=== PATIENT | male | born 1995 | race Caucasian/White ===

== ENCOUNTER 2017-03-14 06:20 | Emergency (ER) | payer BC ==
--- NOTE | 2017-03-14 07:33 | ERPHSYRPT ---
- History of Present Illness Time Seen by Provider: 03/14/17 07:28 Historian: patient, family Exam Limitations: no limitations Patient Subjective Stated Complaint: Pt sts abd pain diffuse but worst RUQ x 3 weeks. Sts intermittent vomiting. Pt sts vomiting x 2 this morning. Denies diarrhea. Denies fevers at home. Pt described as pressure. Rates pain 2/10 at present, can go up to 10/10 at times. Sts thinks he has seen blood in his spit suring/after vomiting. Denies any aggravating factors. Denies alleviating factors at home. Has not taken any OTC medications for this. Triage Nursing Assessment: Pt alert, oriented, answers all questions appropriately. Pt ambulatory to tx room, steady gait noted. Resps non-labored. ABD SNT x 4 quadrants. Physician History: The patient is a 21-year-old male with his significant other complaining of intermittent abdominal pain for 2-3 weeks. He also complains of intermittent vomiting during this time. He doesn't vomit every day. He says he has abdominal pain comes on after vomiting. Currently he has no abdominal pain. He has vomited twice since midnight. He says he will begin coughing which leads to vomiting. The last 2 times he has noticed flecks of blood in the vomit. The flecks of blood has him worried. He also complains that he has not having regular bowel movements as he used to have before 2-3 weeks ago. His normal bowel habits were to have a bowel movement a few minutes after each meal. He would have a bowel movement 3-5 times a day. For the last 2-3 weeks he does not have a bowel movement daily. Now he must strain significantly to have a bowel movement and the bowel movement consists of small hard pellets. He feels obstipated all the time. His past medical history is unremarkable. He has had no surgeries. He takes no medicines. He does not smoke or drink. Timing/Duration: week(s) (3) Activities at Onset: none Quality: pressure, sharpness Abdominal Pain Onset Location: epigastric Pain Radiation: no radiation Severity of Pain-Max: severe Severity of Pain-Current: none Modifying Factors: Improves With: eating, vomiting Associated Symptoms: nausea Previous symptoms: no prior history Allergies/Adverse Reactions: No Known Drug Allergies Allergy (Verified 08/23/16 21:40) Hx Tetanus, Diphtheria Vaccination/Date Given: Yes Hx Influenza Vaccination/Date Given: No Hx Pneumococcal Vaccination/Date Given: No - Review of Systems Constitutional: No Fever, No Chills Eyes: No Symptoms Ears, Nose, & Throat: No Symptoms Respiratory: No Cough, No Dyspnea Cardiac: No Chest Pain, No Edema, No Syncope Abdominal/Gastrointestinal: Abdominal Pain, Nausea, Vomiting, Constipation Genitourinary Symptoms: No Dysuria Musculoskeletal: No Back Pain, No Neck Pain Skin: No Rash Neurological: No Dizziness, No Focal Weakness, No Sensory Changes Psychological: No Symptoms Endocrine: No Symptoms Hematologic/Lymphatic: No Symptoms Immunological/Allergic: No Symptoms All Other Systems: Reviewed and Negative - Past Medical History Pertinent Past Medical History: No - Past Surgical History Past Surgical History: No - Social History Smoking Status: Never smoker Exposure to second hand smoke: No Alcohol Use: occasional alcohol use Drug Use: none Patient Lives Alone: No - Nursing Vital Signs Nursing Vital Signs: Initial Vital Signs Temperature 97.3 F Temperature Source Oral Pulse Rate 62 Respiratory Rate 18 Blood Pressure [Right Arm] 121/67 Pain Intensity 2 - Physical Exam General Appearance: no apparent distress, alert Eye Exam: PERRL/EOMI, eyes nml inspection Ears, Nose, Throat Exam: normal ENT inspection, pharynx normal, moist mucous membranes Neck Exam: normal inspection, non-tender, supple, full range of motion Respiratory Exam: normal breath sounds, lungs clear, No respiratory distress Cardiovascular Exam: regular rate/rhythm, normal heart sounds Gastrointestinal/Abdomen Exam: soft, normal bowel sounds (Hyperactive), tenderness (LLQ) Rectal Exam: not done Back Exam: normal inspection, normal range of motion, No CVA tenderness, No vertebral tenderness Extremity Exam: normal inspection, normal range of motion, pelvis stable Neurologic Exam: alert, oriented x 3, cooperative, normal mood/affect, nml cerebellar function, sensation nml, No motor deficits Skin Exam: normal color, warm, dry SpO2 Interpretation: normal SpO2: 97 Oxygen Delivery: Room Air - Radiology Exams Abdomen X-ray Interpretation: Teleradiologist Report, Negative (per Dr Schmidt) Ordered Tests: Active Orders 24 hr Category Date Time Status IV Insertion STAT Care 03/14/17 07:34 Active OBSTR/ACUTE ABDOMEN SERIES Stat Exams 03/14/17 07:35 Completed CBC W DIFF Stat Lab 03/14/17 06:53 Completed CMP Stat Lab 03/14/17 06:53 Completed LIPASE Stat Lab 03/14/17 06:53 Completed UA Stat Lab 03/14/17 08:20 Completed Medication Summary Discontinued Medications Generic Name Dose Route Start Last Admin Trade Name Harjinder PRN Reason Stop Dose Admin Sodium Chloride 1,000 mls @ 999 mls/hr 03/14/17 07:34 03/14/17 07:50 Sodium Chloride 0.9% 1000 Ml IV 03/14/17 08:34 999 mls/hr .Q1H1M STA Administration Sodium Chloride Confirm 03/14/17 07:46 Sodium Chloride 0.9% 1000 Ml Administered 03/14/17 07:47 Dose 1,000 mls @ ud .ROUTE .STK-MED ONE Ondansetron HCl 4 mg 03/14/17 07:34 03/14/17 07:50 Zofran 4 Mg/2 Ml Vial IV 03/14/17 07:35 4 mg STAT ONE Administration Ondansetron HCl Confirm 03/14/17 07:46 Zofran 4 Mg/2 Ml Vial Administered 03/14/17 07:47 Dose 4 mg .ROUTE .STK-MED ONE Lab/Rad Data: Laboratory Result Diagrams 03/14/17 06:53 03/14/17 06:53 Laboratory Results 03/14/17 03/14/17 03/14/17 Range/Units 08:20 06:53 06:53 WBC 5.7 (4.0-10.5) K/mm3 RBC 5.05 (4.1-5.6) M/mm3 Hgb 15.2 (12.5-18.0) gm/dl Hct 45.0 (42-50) % MCV 89.1 (78-100) fl MCH 30.1 (26-32) pg MCHC 33.8 (32-36) g/dl RDW 13.0 (11.5-14.0) % Plt Count 231 (150-450) K/mm3 MPV 9.8 H (6-9.5) fl Gran % 49.9 (36.0-66.0) % Lymphocytes % 35.1 (24.0-44.0) % Monocytes % 13.1 H (0.0-12.0) % Eosinophils % 1.6 (0.00-5.0) % Basophils % 0.3 (0.0-0.4) % Basophils # 0.02 (0-0.4) Sodium 144 (136-145) mEq/L Potassium 3.6 (3.5-5.1) mEq/L Chloride 108 H (98-107) mEq/L Carbon Dioxide 28.2 (21-32) mEq/L Anion Gap 11.4 (5-15) MEQ/L BUN 14 (9-20) mg/dL Creatinine 1.03 (0.55-1.30) mg/dl Estimated GFR > 60 ML/MIN Glucose 97 (70-110) MG/DL Calcium 9.4 (8.5-10.1) mg/dL Total Bilirubin 0.9 (0.2-1.0) mg/dL AST 19 (15-37) U/L ALT 18 (12-78) U/L Alkaline Phosphatase 56 (46-116) U/L Serum Total Protein 7.0 (6.4-8.2) gm/dL Albumin 3.7 (3.4-5.0) g/dL Lipase 105 (73-393) U/L Ur Collection Type VOID Urine Color YELLOW (YELLOW) Urine Appearance CLEAR (CLEAR) Urine pH 6.0 (5-6) Ur Specific [place] 1.020 (1.005-1.025) Urine Protein NEGATIVE (Negative) Urine Glucose (UA) NEGATIVE (NEGATIVE) mg/dL Urine Ketones NEGATIVE (NEGATIVE) Urine Nitrite NEGATIVE (NEGATIVE) Urine Bilirubin NEGATIVE (NEGATIVE) Urine Urobilinogen 0.2 (0-1) mg/dL Urine WBC (Auto) NEGATIVE (NEGATIVE) Urine RBC (Auto) NEGATIVE (0-5) Vasu/ul Specimen Received 03-14-17 0820 - Progress Progress: improved Progress Note: 03/14/17 09:18 After receiving Zofran 4 mg and normal saline 1000 mL by IV, patient is feeling better and wishes to go home. Counseled pt/family regarding: lab results, diagnosis, rad results - Departure Time of Disposition: 09:19 Departure Disposition: Home Clinical Impression: Abdominal pain, Constipation Condition: Stable Critical Care Time: No Additional Instructions: You have abdominal pain and constipation. You were treated with Zofran and IV fluids in the ER. He was given a prescription for Zofran 4 mg every 6 hours as needed for nausea. For constipation by a bottle of magnesium citrate over-the- counter and take all at once. Follow-up as needed. Prescriptions: Ondansetron [Zofran Odt] 4 mg PO Q6HPRN PRN #10 tab.rapdis PRN Reason: Nausea/Vomiting
[2017-03-14] MEDS ORDERED: Zofran 4 MG/2 ML VIAL IV ONE (07:34)
[2017-03-14] MEDS ORDERED: Sodium Chloride 0.9% 1000 ML 1,000 ML IV STA (07:34)
[2017-03-14 07:41] LABS: BASOPHIL % 0.3 % (0.0-0.4); Eosinophil % 1.6 % (0.00-5.0); Granulocytes % 49.9 % (36.0-66.0); Lymphocytes % 35.1 % (24.0-44.0); Mean Cell Volume 89.1 fl (78-100); Mean Corpuscular Hemoglobin 30.1 pg (26-32); Mean Platelet Volume 9.8 fl (6-9.5); Monocytes % 13.1 % (0.0-12.0); Platelet Count 231 K/mm3 (150-450); Red Blood Count 5.05 M/mm3 (4.1-5.6); White Blood Count 5.7 K/mm3 (4.0-10.5)
[2017-03-14] MEDS ORDERED: Sodium Chloride 0.9% 1000 ML 1,000 ML ONE (07:46)
[2017-03-14] MEDS ORDERED: Zofran 4 MG/2 ML VIAL ONE (07:46)
[2017-03-14 07:50] LABS: ALBUMIN 3.7 g/dL (3.4-5.0); ALKALINE PHOSPHATASE 56 U/L (46-116); ANION GAP 11.4 MEQ/L (5-15); BILIRUBIN,TOTAL 0.9 mg/dL (0.2-1.0); BLOOD UREA NITROGEN 14 mg/dL (9-20); CHLORIDE 108 mEq/L (98-107); Carbon Dioxide 28.2 mEq/L (21-32); Glucose 97 MG/DL (70-110); LIPASE 105 U/L (73-393); Potassium 3.6 mEq/L (3.5-5.1); SGOT/AST 19 U/L (15-37); SGPT/ALT 18 U/L (12-78); SODIUM 144 mEq/L (136-145)
[2017-03-14 08:27] LABS: Collection Type VOID
[2017-03-14 08:28] LABS: COMPLETE URINE MICROSCOPIC? NO
--- NOTE | 2017-03-14 09:01 | XRAY ---
Indication: Epigastric abdominal pain. Nausea and vomiting. Comparison: Chest exam July 13, 2016. 2 views of the abdomen demonstrates nonspecific nonobstructed bowel gas pattern. No free air. Small metallic BB projects over the lower lumbar spine. Remaining solid organs and osseous structures are unremarkable. Single PA chest demonstrates normal heart, lungs, and bony thorax. Impression: 1. Nonacute nonobstructed abdomen with small metallic BB. 2. Normal 1 view chest.
[2017-03-14 09:13] VITALS: BP 121/67; PULSE 62
[2017-03-14 09:23] VITALS: O2SAT 97
== END 2017-03-14 09:30 | disposition home or self-care (01) ==
LOC: ED 06:20
DX: R10.9 Unspecified abdominal pain (principal); K59.00 Constipation, unspecified; R10.11 Right upper quadrant pain; R10.13 Epigastric pain; R11.2 Nausea with vomiting, unspecified
CPT/HCPCS: 36415; 74022; 80053; 81002; 83690; 85025; 96360; 96374; 99284; J2405

== ENCOUNTER 2017-08-06 11:31 | Emergency (ER) | payer BC, OTHER ==
[2017-08-06] MEDS ORDERED: TORAdol 30 mg Injection IM ONE (11:41)
[2017-08-06 11:43] VITALS: PULSE 60; O2SAT 98
[2017-08-06] MEDS ORDERED: TORAdol 30 mg Injection ONE (11:45)
--- NOTE | 2017-08-06 11:51 | ERPHSYRPT ---
- History of Present Illness Time Seen by Provider: 08/06/17 11:33 Source: patient Patient Subjective Stated Complaint: Pt states "I have a workmans comp injury and I hurt my rt shoulder about a month ago and this morning I cannot lift my arm it hurts allot worse than before." Triage Nursing Assessment: Pt alert and oriented X 3, skin pwd pt ambulates without difficulty, able to speak in full sentences, pt holding his right arm, wincing in pain when it moves. 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 He had remote shoulder injury with subscapularis tendinosis with partial thickness tear on MRI 01-25-17. He had a work related right shoulder injury about 3 weeks ago. Had appointment in [place] at his worker's [facility]. They gave motrin 800mg. Had xray. Has appt for follow up Sun. He has been on partial work restriction. He awoke this AM and Sunday AM with sharp pain in the shoulder. No new discreet injury. No N/T/W. No chest or abd pain. No other complaints. Out of the motrin. Was not sure what to do so came to ER. Extremities Pain Location: shoulder: right Allergies/Adverse Reactions: No Known Drug Allergies Allergy (Verified 08/23/16 21:40) Hx Tetanus, Diphtheria Vaccination/Date Given: Yes Hx Influenza Vaccination/Date Given: No Hx Pneumococcal Vaccination/Date Given: No Immunizations Up to Date: Yes - Review of Systems Constitutional: No Fever, No Chills Respiratory: No Dyspnea Cardiac: No Chest Pain Abdominal/Gastrointestinal: No Abdominal Pain Musculoskeletal: Joint Pain (right shoulder), No Back Pain, No Neck Pain Neurological: No Focal Weakness, No Headache, No Parasthesia All Other Systems: Reviewed and Negative - Past Medical History Pertinent Past Medical History: No - Past Surgical History Past Surgical History: No - Social History Smoking Status: Never smoker Exposure to second hand smoke: Yes Alcohol Use: occasional alcohol use Drug Use: none Patient Lives 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: No ([employer] 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) - Nursing Vital Signs Nursing Vital Signs: Initial Vital Signs Temperature 98.1 F 08/06/17 11:36 Pulse Rate 60 08/06/17 11:36 Respiratory Rate 18 08/06/17 11:36 Blood Pressure 152/64 08/06/17 11:36 O2 Sat by Pulse Oximetry 98 10/02/17 11:36 Pain Scale Pain Intensity 8 - Physical Exam General Appearance: alert Eyes, Ears, Nose, Throat Exam: normal ENT inspection, moist mucous membranes Neck Exam: normal inspection, non-tender, supple, No tenderness midline Cardiovascular/Respiratory Exam: normal breath sounds, regular rate/rhythm, No chest non-tender Shoulder Exam: normal inspection, limited ROM (pain with lateral motion and abduction. Good pulse and skin color. No redness. No swelling. No ecchymosis. Tender upper and posterior shoulder.) Elbow/Forearm Exam: normal inspection, non-tender, no evidence of injury Wrist Exam: normal inspection, non-tender, no evidence of injury Hand Exam: normal inspection, non-tender, no evidence of injury Neuro/Tendon Exam: normal sensation, normal motor functions Mental Status Exam: alert, oriented x 3, cooperative Skin Exam: warm, dry SpO2 Interpretation: normal SpO2: 98 Oxygen Delivery: Room Air - Course Nursing assessment & vital signs reviewed: Yes Ordered Tests: Medication Summary Discontinued Medications Generic Name Dose Route Start Last Admin Trade Name Harjinder PRN Reason Stop Dose Admin Ketorolac Tromethamine 60 mg 08/06/17 11:41 Toradol 30 Mg Injection IM 08/06/17 11:42 STAT ONE - Progress Progress Note: 08/06/17 11:50 He has no new injury. Needs to follow up with occ health and may need repeat MRI or physical therapy. Rx motrin. Toradol given here. Xray and sling not indicated at present. Counseled pt/family regarding: diagnosis, need for follow-up - Departure Time of Disposition: 11:51 Departure Disposition: Home Clinical Impression: Right shoulder strain Qualifiers: Encounter type: initial encounter Qualified Code(s): S46.911A - Strain of unspecified muscle, fascia and tendon at shoulder and upper arm level, right arm , initial encounter Condition: Stable Critical Care Time: No Referrals: DOCTOR,NO FAMILY [Primary Care Provider] - Instructions: Shoulder Sprain Additional Instructions: Rx motrin. You need to follow up with your occupational health this week to consider further testing or treatment for this shoulder injury. Ice packs off and on. Prescriptions: Ibuprofen 800 mg PO TID #20 tablet
[2017-08-06 11:59] VITALS: BP 152/60
== END 2017-08-06 12:04 | disposition home or self-care (01) ==
LOC: ED 11:31
DX: S46.911A Strain of unspecified muscle, fascia and tendon at shoulder and upper arm level, right arm, initial encounter (principal)
CPT/HCPCS: 96372; 99284; J1885

== ENCOUNTER 2017-08-23 13:53 | Emergency (ER) | payer BC, OTHER ==
[2017-08-23] MEDS ORDERED: Transderm Scop 1.5MG Patch TOP ONE (14:11)
[2017-08-23] MEDS ORDERED: Zofran 4 MG/2 ML VIAL IV ONE (14:11)
[2017-08-23] MEDS ORDERED: ANTIVERT 25 MG PO ONE (14:11)
[2017-08-23] MEDS ORDERED: Sodium Chloride 0.9% 1000 ML 1,000 ML IV SCH (14:15)
[2017-08-23] MEDS ORDERED: ANTIVERT 25 MG ONE (14:18)
[2017-08-23] MEDS ORDERED: Sodium Chloride 0.9% 1000 ML 1,000 ML ONE ×2 (14:18→22:44)
[2017-08-23] MEDS ORDERED: Zofran 4 MG/2 ML VIAL ONE (14:19)
--- NOTE | 2017-08-23 14:19 | ERPHSYRPT ---
- History of Present Illness Time Seen by Provider: 08/23/17 13:57 Source: patient Exam Limitations: no limitations Patient Subjective Stated Complaint: pt here for dizziness today, states last couple weeks as been having headaches and states sleeping more, denies stress, vomited x1 Triage Nursing Assessment: pt alert, walked in, resp easy, skin w/d. no edema noted Physician History: patient presents with dizziness consistent of being lightheaded and some vertigo ; some nausea but no vomiting; recent headaches generalized and nonspecific; worst was 6/10; no trauma; no photophobia; not positional; no scintillating scotoma; no travel or exposures; no recent flying or diving; no recent colds; no tinnitus; no prior history; no visual disturbance Timing/Duration: week(s) (onset and duration 1-2), constant (But resolved yesterday), gradual onset, other (now lightheaded and dizzy) Quality: aching Head Pain Location: global Severity of Pain-Max: moderate Severity of Pain-Current: none Modifying Factors: Improves With: other (nothing) Associated Symptoms: dizziness, fatigue, light-headedness, nausea/vomiting ( nausea but only one episode of emesis) Previous symptoms: no prior history Allergies/Adverse Reactions: No Known Drug Allergies Allergy (Verified 08/23/17 14:09) Home Medications: No Reportable Medications [No Reported Medications] 08/23/17 [History] Hx Tetanus, Diphtheria Vaccination/Date Given: Yes Hx Influenza Vaccination/Date Given: No Hx Pneumococcal Vaccination/Date Given: No Immunizations Up to Date: Yes - Review of Systems Constitutional: Malaise, No Fever, No Night Sweats, No Weight Loss Eyes: No Eye Pain, No Eye Redness, No Photophobia, No Vision Changes, No Double Vision Ears, Nose, & Throat: No Ear Pain, No Ear Discharge, No Hearing Changes, No Tinnitus, No Nose Congestion, No Sinus Drainage Respiratory: No Cough, No Dyspnea, No Wheezing Cardiac: No Chest Pain, No Palpitations, No Syncope Abdominal/Gastrointestinal: Nausea, Vomiting (times one only), No Abdominal Pain , No Diarrhea, No Constipation Genitourinary Symptoms: No Symptoms Musculoskeletal: Arthralgias, Back Pain (chronic), No Neck Pain, No Fall, No Injury Skin: No Symptoms Neurological: Dizziness, Headache, Vertigo (mild intermittent), No Focal Weakness, No Paralysis, No Seizure Psychological: Anxiety, No Alcohol Abuse, No Drug Abuse, No Suicidal Ideations Endocrine: No Symptoms Hematologic/Lymphatic: No Symptoms Immunological/Allergic: No Symptoms - Past Medical History Pertinent Past Medical History: No - Past Surgical History Past Surgical History: No - Social History Smoking Status: Never smoker Exposure to second hand smoke: No Alcohol Use: Socially Drug Use: none Patient Lives Alone: No Significant Family History: no pertinent family hx - Nursing Vital Signs Nursing Vital Signs: Initial Vital Signs Temperature 97.7 F 08/23/17 13:53 Pulse Rate 68 08/23/17 13:53 Respiratory Rate 18 08/23/17 13:53 Blood Pressure 137/74 08/23/17 13:53 O2 Sat by Pulse Oximetry 97 08/23/17 13:53 Pain Scale Pain Intensity 0 - Physical Exam General Appearance: mild distress, alert, anxiety Eye Exam: PERRL/EOMI, eyes nml inspection, other (fundi benign without papilledema), No photophobia Ears, Nose, Throat Exam: normal ENT inspection, TMs normal, pharynx normal, moist mucous membranes Neck Exam: normal inspection, non-tender, supple, full range of motion, No meningismus, No carotid bruit, No JVD, No thyromegaly Respiratory Exam: normal breath sounds, lungs clear, airway intact, No chest tenderness, No respiratory distress Cardiovascular Exam: regular rate/rhythm, normal heart sounds, normal peripheral pulses, capillary refill <2 sec, No murmur Gastrointestinal/Abdominal Exam: soft, normal bowel sounds, No tenderness, No guarding, No pulsatile mass, No rebound, No organomegaly Extremity Exam: normal inspection, normal range of motion, other (no Homans sign and no edema; no hyperreflexia) Mental Status Exam: alert, oriented x 3, 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 Exam: normal hearing, normal speech, PERRL, tongue midline, No facial asymmetry Coordination/Gait Exam: normal gait, negative Romberg's sign Motor/Sensory Exam: no motor deficit, no sensory deficit, no pronator drift, negative Babinski's sign DTR Exam: knee (R): 4+, knee (L): 4+ Skin Exam: normal color, warm, dry, No rash, No cyanosis SpO2 Interpretation: normal SpO2: 97 Oxygen Delivery: Room Air - Course Nursing assessment & vital signs reviewed: Yes Rhythm Strip: Rate (68), Normal Sinus Rhythm Ordered Tests: Active Orders 24 hr Category Date Time Status Accucheck STAT Care 08/23/17 14:11 Active Calender Worker Helper STAT Care 08/23/17 14:12 Active Orthostatic Vital Signs STAT Care 08/23/17 14:11 Active Re-Check Vital Signs STAT Care 08/23/17 14:12 Active BMP Stat Lab 08/23/17 14:15 Completed CBC W DIFF Stat Lab 08/23/17 14:15 Completed MAGNESIUM Stat Lab 08/23/17 14:15 Completed Medication Summary Generic Name Dose Route Start Last Admin Trade Name Freq PRN Reason Stop Dose Admin Sodium Chloride 1,000 mls @ 100 mls/hr 08/23/17 14:15 08/23/17 14:23 Sodium Chloride 0.9% 1000 Ml IV 09/22/17 14:14 100 mls/hr .Q10H YEFRI Administration Discontinued Medications Generic Name Dose Route Start Last Admin Trade Name Freq PRN Reason Stop Dose Admin Sodium Chloride 250 mls @ 999 mls/hr 08/23/17 14:13 08/23/17 14:23 Sodium Chloride 0.9% 1000 Ml IV 08/23/17 14:28 999 mls/hr .Q16M STA Administration Meclizine HCl 12.5 mg 08/23/17 14:11 08/23/17 14:19 Antivert 25 Mg PO 08/23/17 14:12 12.5 mg STAT ONE Administration Meclizine HCl Confirm 08/23/17 14:18 Antivert 25 Mg Administered 08/23/17 14:19 Dose 25 mg .ROUTE .STK-MED ONE Ondansetron HCl 4 mg 08/23/17 14:11 08/23/17 14:19 Zofran 4 Mg/2 Ml Vial IV 08/23/17 14:12 4 mg STAT ONE Administration Ondansetron HCl Confirm 08/23/17 14:19 Zofran 4 Mg/2 Ml Vial Administered 08/23/17 14:20 Dose 4 mg .ROUTE .STK-MED ONE Scopolamine HBr 1.5 mg 08/23/17 14:11 08/23/17 14:45 Transderm Scop 1.5mg Patch TOP 08/23/17 14:12 1.5 mg STAT ONE Administration Lab/Rad Data: Laboratory Result Diagrams 08/23/17 14:15 08/23/17 14:15 Laboratory Results 08/23/17 08/23/17 Range/Units 14:15 14:15 WBC 5.4 (4.0-10.5) K/mm3 RBC 5.28 (4.1-5.6) M/mm3 Hgb 15.8 (12.5-18.0) gm/dl Hct 46.4 (42-50) % MCV 87.9 (78-100) fl MCH 29.9 (26-32) pg MCHC 34.1 (32-36) g/dl RDW 13.3 (11.5-14.0) % Plt Count 219 (150-450) K/mm3 MPV 9.3 (6-9.5) fl Gran % 45.8 (36.0-66.0) % Lymphocytes % 42.3 (24.0-44.0) % Monocytes % 10.2 (0.0-12.0) % Eosinophils % 1.5 (0.00-5.0) % Basophils % 0.2 (0.0-0.4) % Basophils # 0.01 (0-0.4) Sodium 141 (136-145) mEq/L Potassium 4.0 (3.5-5.1) mEq/L Chloride 106 (98-107) mEq/L Carbon Dioxide 29.1 (21-32) mEq/L Anion Gap 10.0 (5-15) MEQ/L BUN 13 (9-20) mg/dL Creatinine 0.99 (0.55-1.30) mg/dl Estimated GFR > 60 ML/MIN Glucose 88 (70-110) MG/DL Calcium 9.3 (8.5-10.1) mg/dL Magnesium 1.9 (1.8-2.4) mg/dL reviewed - Progress Progress: improved (after meds an div fluids), re-examined Air Movement: good Progress Note: 08/23/17 14:20 iv fluids started; meds given; lab pending; will monitor and recheck; OSVS no change in BP; Pulse jumped 20 / min; no symptoms; will give IV fluid blous and recheck; bs 167 08/23/17 15:05 rechecked and imporved after meds and IV fluids; cbc ok; will continue IV fluids and recheck 08/23/17 15:21 rechecked and symptoms gone; VS good; instructions given Blood Culture(s) Obtained: No Antibiotics given: No Counseled pt/family regarding: lab results, diagnosis, need for follow-up - Departure Time of Disposition: 15:24 Departure Disposition: Home Clinical Impression: Vertigo, clinical dehydration, Headache Condition: Stable Critical Care Time: No Referrals: DOCTOR,NO FAMILY [Primary Care Provider] - Instructions: Vertigo, Headache, Dehydration -- Adult Additional Instructions: rest - good hydration; tylenol ; motrin prn Follow-up with family doctor as directed. Call for appointment. Return if any problems. If you smoke please stop. Call or follow up with your family doctor for assistance if you need it to stop. Please wear your seatbelt when driving. Have a nice day. Thank you for allowing us to participate in your care today. :o) Dr Zia Oshea
[2017-08-23 14:24] LABS: BASOPHIL % 0.2 % (0.0-0.4); Eosinophil % 1.5 % (0.00-5.0); Granulocytes % 45.8 % (36.0-66.0); Lymphocytes % 42.3 % (24.0-44.0); Mean Cell Volume 87.9 fl (78-100); Mean Corpuscular Hemoglobin 29.9 pg (26-32); Mean Platelet Volume 9.3 fl (6-9.5); Monocytes % 10.2 % (0.0-12.0); Platelet Count 219 K/mm3 (150-450); Red Blood Count 5.28 M/mm3 (4.1-5.6); Red Cell Distribution Width 13.3 % (11.5-14.0); White Blood Count 5.4 K/mm3 (4.0-10.5)
[2017-08-23 14:56] VITALS: O2SAT 97
[2017-08-23 15:01] LABS: BLOOD UREA NITROGEN 13 mg/dL (9-20); CHLORIDE 106 mEq/L (98-107); Carbon Dioxide 29.1 mEq/L (21-32); Glucose 88 MG/DL (70-110); MAGNESIUM 1.9 mg/dL (1.8-2.4); SODIUM 141 mEq/L (136-145)
[2017-08-23 15:52] VITALS: BP 129/69; PULSE 68
== END 2017-08-23 15:56 | disposition home or self-care (01) ==
LOC: ED 13:53
DX: R42 Dizziness and giddiness (principal); E86.0 Dehydration; R51 Headache; R11.2 Nausea with vomiting, unspecified
CPT/HCPCS: 36415; 80048; 82962; 83735; 85025; 93041; 96360; 99284; J2405; A9270-GY

== ENCOUNTER 2017-11-04 19:14 | Emergency (ER) | payer BC ==
[2017-11-04] MEDS ORDERED: Mucinex 600MG ER Tabs PO STA (19:36)
--- NOTE | 2017-11-04 19:40 | ERPHSYRPT ---
- History of Present Illness Time Seen by Provider: 11/04/17 19:37 Source: patient Physician History: 22-year-old male came to the emergency room with complaining of sore throat and generalized body ache. Patient has been sick for last 1 day. Denies any fever , chills, nausea, vomiting, diarrhea. Patient daughter was sick with viral illness. Timing/Duration: today Associated Symptoms: cough Allergies/Adverse Reactions: No Known Drug Allergies Allergy (Verified 11/04/17 19:27) Hx Tetanus, Diphtheria Vaccination/Date Given: Yes Hx Influenza Vaccination/Date Given: No Hx Pneumococcal Vaccination/Date Given: No - Review of Systems Constitutional: No Fever, No Chills Eyes: No Symptoms Ears, Nose, & Throat: No Symptoms, Throat Pain Respiratory: No Cough, No Dyspnea Cardiac: No Chest Pain, No Edema, No Syncope Abdominal/Gastrointestinal: No Abdominal Pain, No Nausea, No Vomiting, No Diarrhea Genitourinary Symptoms: No Dysuria Musculoskeletal: No Back Pain, No Neck Pain Skin: No Rash Neurological: No Dizziness, No Focal Weakness, No Sensory Changes Psychological: No Symptoms Endocrine: No Symptoms All Other Systems: Reviewed and Negative - Past Medical History Pertinent Past Medical History: No - Past Surgical History Past Surgical History: No - Social History Smoking Status: Never smoker Exposure to second hand smoke: No Alcohol Use: Socially Drug Use: none Patient Lives Alone: No Significant Family History: no pertinent family hx - Nursing Vital Signs Nursing Vital Signs: Initial Vital Signs Temperature 98.4 F 11/04/17 19:35 Pulse Rate 102 H 11/04/17 19:35 Respiratory Rate 16 11/04/17 19:35 Blood Pressure 150/75 11/04/17 19:35 O2 Sat by Pulse Oximetry 96 11/04/17 19:35 Pain Scale Pain Intensity 4 - Physical Exam General Appearance: no apparent distress, alert Eye Exam: PERRL/EOMI, eyes nml inspection Ears, Nose, Throat Exam: normal ENT inspection, TMs normal, moist mucous membranes, pharyngeal erythema Neck Exam: normal inspection, non-tender, supple, full range of motion Respiratory Exam: normal breath sounds, lungs clear, No respiratory distress Cardiovascular Exam: regular rate/rhythm, normal heart sounds, normal peripheral pulses Gastrointestinal/Abdomen Exam: soft, normal bowel sounds, No tenderness, No mass Back Exam: normal inspection, normal range of motion, No CVA tenderness, No vertebral tenderness Extremity Exam: normal inspection, normal range of motion, pelvis stable Neurologic Exam: alert, oriented x 3, cooperative, normal mood/affect, nml cerebellar function, nml station & gait, sensation nml, No motor deficits Skin Exam: normal color, warm, dry, No rash Lymphatic Exam: No adenopathy - Course Nursing assessment & vital signs reviewed: Yes Ordered Tests: Medication Summary Discontinued Medications Generic Name Dose Route Start Last Admin Trade Name Harjinder PRN Reason Stop Dose Admin Guaifenesin 1,200 mg 11/04/17 19:36 Mucinex 600mg Er Tabs PO 11/04/17 19:37 BID STA - Progress Progress: unchanged Counseled pt/family regarding: diagnosis, need for follow-up - Departure Time of Disposition: 19:49 Departure Disposition: Home Clinical Impression: Viral pharyngitis Condition: Stable Critical Care Time: No Referrals: DOCTOR,NO FAMILY [Primary Care Provider] - Instructions: Viral Pharyngitis Additional Instructions: VIRAL ILLNESS 1. Rest at home and take any prescribed medications as directed or until gone. 2. Offer plenty of fluids as tolerated. 3. Acetaminophen or Ibuprofen as directed. 4. Be sure to follow up with your family physician or return to the emergency department if symptoms change or become worse.UPPER RESPIRATORY INFECTIONS 1. The signs and symptoms of a cold may last up to 10 days. These illnesses are due to viruses which are not treatable with antibiotics. 2. The following suggestions can aid in recovery and to minimize symptoms: A. Increase fluid intake. B. Acetaminophen or Ibuprofen as directed. C. Avoid smoking environments as this will increase the risk of developing pneumonia. D. For children, may use a cool mist vaporizer in the child's room. 3. Contact your Family Physician if you note: A. Persisten fever >103 for more than 3 days B. Breathing difficulty C. Productive cough of yellow/green sputum D. Illness greater than 7 days E. Persistent vomiting F. Stiff neck Prescriptions: Guaifenesin/Dextromethorphan [Mucinex Dm ER 1,200-60 mg Tab] 1 each PO BID #10 tab.er.[id number]
[2017-11-04 20:14] VITALS: O2SAT 97
[2017-11-04 20:15] VITALS: BP 126/76; PULSE 91
== END 2017-11-04 20:20 | disposition home or self-care (01) ==
LOC: ED 19:14
DX: J02.9 Acute pharyngitis, unspecified (principal); B34.9 Viral infection, unspecified
CPT/HCPCS: 99283; A9270-GY

== ENCOUNTER 2018-02-27 11:32 | Emergency (ER) | payer SELFPAY ==
[2018-02-27 11:42] VITALS: O2SAT 98
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
[2018-02-27 13:33] VITALS: BP 132/68; PULSE 62
== END 2018-02-27 13:33 | disposition home or self-care (01) ==
LOC: ED 11:32
DX: S40.011A Contusion of right shoulder, initial encounter (principal); S20.211A Contusion of right front wall of thorax, initial encounter; W01.0XXA Fall on same level from slipping, tripping and stumbling without subsequent striking against object, initial encounter
CPT/HCPCS: 71046; 71100; 72072; 73030; 99283

== ENCOUNTER 2018-09-10 12:26 | Emergency (ER) | payer BC ==
[2018-09-10 12:43] VITALS: BP 125/73; PULSE 67; O2SAT 92
--- NOTE | 2018-09-10 13:40 | ERPHSYRPT ---
- History of Present Illness Time Seen by Provider: 09/10/18 13:15 Source: patient Exam Limitations: no limitations Patient Subjective Stated Complaint: PT states "I have been vomiting and had diarrhea since 5 am. I tried to go to [facility] and I thought I was going to pass out so I just came down here." Triage Nursing Assessment: Pt alert and oriented x 3, skin pwd. PT ambulates with an upright steady gait, able to speak in clear full sentences. PT in no apparent respiratory distress. Physician History: 23 y/o white male presents with one day h/o n/v/d. no other individuals around him have similar sx. no headache, no sore throat, no earache and no cough. Timing/Duration: day(s) (1) Severity: mild Associated Symptoms: nausea, vomiting, abdominal pain Allergies/Adverse Reactions: No Known Drug Allergies Allergy (Verified 11/04/17 19:27) Home Medications: No Reportable Medications [No Reported Medications] 02/27/18 [History] Hx Tetanus, Diphtheria Vaccination/Date Given: Yes Hx Influenza Vaccination/Date Given: No Hx Pneumococcal Vaccination/Date Given: No Immunizations Up to Date: Yes - Review of Systems Constitutional: No Symptoms Eyes: No Symptoms Ears, Nose, & Throat: No Symptoms Respiratory: No Symptoms Cardiac: No Symptoms Abdominal/Gastrointestinal: Nausea, Vomiting, Diarrhea Genitourinary Symptoms: No Symptoms Musculoskeletal: No Symptoms Skin: No Symptoms Neurological: No Symptoms Psychological: No Symptoms Endocrine: No Symptoms Hematologic/Lymphatic: No Symptoms Immunological/Allergic: No Symptoms All Other Systems: Reviewed and Negative - Past Medical History Pertinent Past Medical History: No Neurological History: No Pertinent History ENT History: No Pertinent History Cardiac History: No Pertinent History Respiratory History: No Pertinent History Endocrine Medical History: No Pertinent History Musculoskeletal History: No Pertinent History GI Medical History: No Pertinent History History: No Pertinent History Psycho-Social History: No Pertinent History Male Reproductive Disorders: No Pertinent History - Past Surgical History Past Surgical History: No Neuro Surgical History: No Pertinent History Cardiac: No Pertinent History Respiratory: No Pertinent History Gastrointestinal: No Pertinent History Genitourinary: No Pertinent History Musculoskeletal: No Pertinent History Male Surgical History: No Pertinent History - Social History Smoking Status: Never smoker Exposure to second hand smoke: No Alcohol Use: Socially Drug Use: none Patient Lives Alone: No Significant Family History: no pertinent family hx - Nursing Vital Signs Nursing Vital Signs: Initial Vital Signs Temperature 98.7 F 09/10/18 12:31 Pulse Rate 67 09/10/18 12:31 Respiratory Rate 16 09/10/18 12:31 Blood Pressure 125/73 09/10/18 12:31 O2 Sat by Pulse Oximetry 92 L 09/10/18 12:31 Pain Scale Pain Intensity 4 - Physical Exam General Appearance: mild distress, alert, anxiety Eye Exam: PERRL/EOMI Ears, Nose, Throat Exam: normal ENT inspection, moist mucous membranes Neck Exam: normal inspection, non-tender, supple, full range of motion Respiratory Exam: normal breath sounds, lungs clear, airway intact, No chest tenderness, No respiratory distress, No accessory muscle use, No rhonchi, No wheezing, No stridor Cardiovascular Exam: regular rate/rhythm, normal heart sounds, normal peripheral pulses Gastrointestinal/Abdomen Exam: soft, normal bowel sounds, No tenderness, No guarding, No rebound Rectal Exam: not done Back Exam: normal inspection, normal range of motion, No CVA tenderness, No vertebral tenderness Extremity Exam: normal inspection, normal range of motion, pelvis stable Neurologic Exam: alert, oriented x 3, cooperative, coding director II-XII nml as tested Skin Exam: normal color, warm, dry Lymphatic Exam: No adenopathy SpO2 Interpretation: normal SpO2: 92 Oxygen Delivery: Room Air - Course Nursing assessment & vital signs reviewed: Yes - Progress Progress: unchanged Progress Note: 09/10/18 13:38 pt just informed nurse he has to leave immediately. he was informed of need to stay and complete his workup. he does not want to stay. he was informed of risks of leaving [facility] including . he will sign an [facility] form Counseled pt/family regarding: diagnosis, need for follow-up - Departure Time of Disposition: 13:34 Departure Disposition: AMA Clinical Impression: Vomiting and diarrhea Condition: Stable Critical Care Time: No Referrals: DOCTOR,NO FAMILY [Primary Care Provider] - Additional Instructions: drink plenty of fluids. follow up with primary doctor for further management
== END 2018-09-10 13:52 | disposition left against medical advice (07) ==
LOC: ED 12:26
DX: R19.7 Diarrhea, unspecified (principal); R11.2 Nausea with vomiting, unspecified
CPT/HCPCS: 99283

== ENCOUNTER 2018-12-17 16:31 | Emergency (ER) | payer BC ==
[2018-12-17] MEDS ORDERED: Unasyn 3GM / NaCl 100ML 3 GM/100 ML IVPB IV STA (17:04)
[2018-12-17] MEDS ORDERED: Unasyn 3GM / NaCl 100ML 3 GM/100 ML IVPB ONE (17:12)
[2018-12-17 17:36] LABS: Granulocyte Absolute (ANC) 4.91 (1.4-6.9); Hemoglobin 15.4 gm/dl (12.5-18.0); Mean Corpuscular Hemoglobin 29.4 pg (26-32); Mean Corpuscular Hgb Concent. 33.5 g/dl (32-36); Mean Platelet Volume 9.5 fl (6-9.5); Platelet Count 204 K/mm3 (150-450); Red Blood Count 5.23 M/mm3 (4.1-5.6); Red Cell Distribution Width 13.1 % (11.5-14.0); White Blood Count 11.5 K/mm3 (4.0-10.5)
[2018-12-17 17:53] LABS: ALBUMIN 4.9 g/dL (3.5-5.0); ALKALINE PHOSPHATASE 92 U/L (38-126); ANION GAP 16.4 MEQ/L (5-15); BLOOD UREA NITROGEN 14 mg/dL (9-20); CHLORIDE 104 mmol/L (98-107); Calcium 9.6 mg/dL (8.4-10.2); Carbon Dioxide 26 mmol/L (22-30); Creatinine 1 0.88 mg/dL (0.66-1.25); Glucose 100 mg/dL (74-106); Potassium 4.7 mmol/L (3.5-5.1); SGOT/AST 37 U/L (17-59); SGPT/ALT 51 U/L (0-50); SODIUM 141 mmol/L (137-145); Total Protein 9.1 g/dL (6.3-8.2)
[2018-12-17 18:05] LABS: Group A Strep NEGATIVE (NEGATIVE); INFLUENZA A NEGATIVE (NEGATIVE); INFLUENZA B NEGATIVE (NEGATIVE); RESPIRATORY SYNCTIAL VIRUS NEGATIVE (Negative)
[2018-12-17] MEDS ORDERED: solu-MEDROL 125 MG IV ONE (18:51)
[2018-12-17] MEDS ORDERED: solu-MEDROL 125 MG ONE (19:10)
[2018-12-17 19:30] LABS: ATYPICAL LYMPHS 19 %; BAND 3 % (0.0-2.0); Lymphocytes 24 % (24-44); Monocyte 3 % (0.0-12.0); Neutrophils 51 % (36.-66.); Platelet Estimate NORMAL (NORMAL); Total Cells Counted 100
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
[2018-12-17 21:08] VITALS: BP 127/83
[2018-12-17 21:43] VITALS: PULSE 88; O2SAT 100
--- NOTE | 2018-12-18 08:54 | XRAY ---
Indication: Bilateral submandibular pain and swelling. Multiple contiguous axial images obtained through the facial bones. Sagittal and coronal reformatted images obtained. Comparison: None No acute fracture, suspicious bony lesions, or radiopaque foreign body. Orbits including roof, danielson, and floors intact. Paranasal sinuses and nasal passages are clear. Mild nasal septal deviation to the left. Visualized cervical spine intact. There are numerous enlarged cervical, submandibular, and supraclavicular lymphadenopathy bilaterally. Largest are submandibular and on the right measuring 2.9 x 1.8 cm. Findings possibly reactive with primary/metastatic malignancy not completely excluded. Also enlarged palatine tonsils and adenoids narrows the oropharynx. Parotid and submandibular glands are bilaterally symmetric. Remaining visualized noncontrasted soft tissues including base of the brain unremarkable. Impression: 1. Numerous bilateral cervical, submandibular, and supraclavicular lymphadenopathy possibly reactive. Primary/metastatic malignancy not completely excluded in the right clinical setting. 2. Enlarged tonsils and adenoids. 3. Remaining CT facial bones negative. CT DI 59.47
== END 2018-12-17 22:15 | disposition short-term general hospital (02) ==
LOC: ED 16:31
DX: B27.19 Cytomegaloviral mononucleosis with other complication (principal); J02.9 Acute pharyngitis, unspecified
CPT/HCPCS: 36415; 70486; 80053; 85025; 86308; 87631; 87651; 96365; 96374; 99284; J0295; J2930

== ENCOUNTER 2022-09-11 19:29 | Emergency (ER) | payer BC ==
--- NOTE | 2022-09-11 19:32 | ERPHSYRPT ---
- History of Present Illness Time Seen by Provider: 09/11/22 19:32 Source: patient Exam Limitations: no limitations Physician History: This is a 27-year-old white male patient of Dr. Naranjo who has a history of recurrent mononucleosis with the most recent infection 2 years ago and presents with 5-day history of sore throat on the left side. He has had a mild cough as well. He has had worse episodes in the past and did not want to wait a long period of time for symptoms to worsen. He has not had a fever. He denies chest pain. He has no shortness of breath. He has no abdominal pain. He has no nausea vomiting or diarrhea Timing/Duration: day(s) (5) Cough Quality/Degree: mild, dry cough Possible Cause: occasional episodes Modifying Factors: Improves With: coughing Associated Symptoms: cough, sore throat, No fever, No chest pain/soreness, No earache, No muscle aches, No shortness of breath Allergies/Adverse Reactions: No Known Drug Allergies Allergy (Verified 12/17/18 16:39) Hx Tetanus, Diphtheria Vaccination/Date Given: Yes Hx Influenza Vaccination/Date Given: No Hx Pneumococcal Vaccination/Date Given: No Travel Risk - International Travel Have you traveled outside of the country in past 3 weeks: No - Coronavirus Screening Are you exhibiting any of the following symptoms?: No Close contact with a COVID-19 positive Pt in past 14-21 Days: No - Vaccine Status Have you recieved a Covid-19 vaccination: No - Review of Systems Constitutional: No Symptoms Eyes: No Symptoms Ears, Nose, & Throat: Throat Pain, No Ear Pain Respiratory: Cough, No Dyspnea Cardiac: No Symptoms, No Chest Pain Abdominal/Gastrointestinal: No Symptoms Genitourinary Symptoms: No Symptoms Musculoskeletal: No Symptoms Skin: No Symptoms Neurological: No Symptoms Psychological: No Symptoms Endocrine: No Symptoms Hematologic/Lymphatic: No Symptoms Immunological/Allergic: No Symptoms All Other Systems: Reviewed and Negative - Past Medical History Pertinent Past Medical History: No Neurological History: No Pertinent History ENT History: No Pertinent History Cardiac History: No Pertinent History Respiratory History: No Pertinent History Endocrine Medical History: No Pertinent History Musculoskeletal History: No Pertinent History GI Medical History: No Pertinent History History: No Pertinent History Psycho-Social History: No Pertinent History Male Reproductive Disorders: No Pertinent History - Past Surgical History Past Surgical History: No Neuro Surgical History: No Pertinent History Cardiac: No Pertinent History Respiratory: No Pertinent History Gastrointestinal: No Pertinent History Genitourinary: No Pertinent History Musculoskeletal: No Pertinent History Male Surgical History: No Pertinent History - Social History Smoking Status: Never smoker Exposure to second hand smoke: No Alcohol Use: Socially Drug Use: none Patient Lives Alone: No Significant Family History: no pertinent family hx - Nursing Vital Signs Nursing Vital Signs: Initial Vital Signs Temperature 98.6 F 09/11/22 20:11 Pulse Rate 60 09/11/22 20:11 Respiratory Rate 18 09/11/22 20:11 Blood Pressure 157/85 09/11/22 20:11 O2 Sat by Pulse Oximetry 95 09/11/22 20:11 Pain Scale Pain Intensity 7 - Physical Exam General Appearance: no apparent distress, alert, anxiety Eye Exam: PERRL/EOMI, eyes nml inspection Ears, Nose, Throat Exam: normal ENT inspection, moist mucous membranes Neck Exam: normal inspection, non-tender, supple, full range of motion Respiratory Exam: normal breath sounds, lungs clear, airway intact, No chest tenderness, No respiratory distress Cardiovascular Exam: regular rate/rhythm, normal heart sounds, normal peripheral pulses Gastrointestinal/Abdomen Exam: soft, normal bowel sounds, No tenderness Rectal Exam: not done Back Exam: normal inspection, normal range of motion, No CVA tenderness, No vertebral tenderness Extremity Exam: normal inspection, normal range of motion, pelvis stable Neurologic Exam: alert, oriented x 3, cooperative, 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 as tested, normal mood/affect, nml cerebellar function, nml station & gait, sensation nml Skin Exam: normal color, warm, dry Lymphatic Exam: No adenopathy SpO2 Interpretation: normal O2 Delivery: Room Air - Course Nursing assessment & vital signs reviewed: Yes Ordered Tests: Active Orders 24 hr Category Date Time Status Wagoner Screen Stat Lab 09/11/22 20:45 Completed Medication Summary Discontinued Medications Generic Name Dose Route Start Last Admin Trade Name Harjinder PRN Reason Stop Dose Admin Ibuprofen 600 mg 09/11/22 21:25 09/11/22 21:26 Ibuprofen 600 Mg Tablet PO 09/11/22 21:26 600 mg STAT ONE Administration Ibuprofen Confirm 09/11/22 21:25 Ibuprofen 600 Mg Tablet Administered 09/11/22 21:26 Dose 600 mg .ROUTE .STK-MED ONE Prednisone 20 mg 09/11/22 21:36 09/11/22 21:37 Prednisone 20 Mg Tablet PO 09/11/22 21:37 20 mg STAT ONE Administration Prednisone Confirm 09/11/22 21:36 Prednisone 20 Mg Tablet Administered 09/11/22 21:37 Dose 20 mg .ROUTE .STK-MED ONE Lab/Rad Data: Laboratory Results 09/11/22 09/11/22 09/11/22 Range/Units 20:45 20:45 20:45 Monoscreen NEGATIVE (Negative) Influenza Type A Ag NEGATIVE (NEGATIVE) Influenza Type B Ag NEGATIVE (NEGATIVE) RSV (PCR) NEGATIVE (Negative) SARS-CoV-2 (PCR) NEGATIVE (NEGATIVE) Group A Strep Antibody NOT DETECTED (NEGATIVE) - Departure Departure Disposition: Home Clinical Impression: Pharyngitis Condition: Stable Critical Care Time: No Referrals: AYDIN NARANJO MD [Primary Care Provider] - Follow up/PCP as directed Additional Instructions: Drink plenty fluids. Take your medication as prescribed. Follow-up with your primary care provider for further evaluation and management Prescriptions: Hydrocodone/Acetaminophen [Hydrocodone-Acetamn 7.5-325/15] 10 ml PO Q8H PRN PRN #120 ml MDD 30 ml PRN Reason: Cough Prednisone 10 mg [Deltasone 10 mg] 10 mg PO TID #12 tablet
[2022-09-11 21:24] VITALS: PULSE 64
[2022-09-11] MEDS ORDERED: MOTRIN 600 MG PO ONE (21:25)
[2022-09-11] MEDS ORDERED: MOTRIN 600 MG ONE (21:25)
[2022-09-11 21:28] LABS: INFLUENZA A NEGATIVE (NEGATIVE); INFLUENZA B NEGATIVE (NEGATIVE); RESPIRATORY SYNCTIAL VIRUS NEGATIVE (Negative); SARS-CoV-2 Xpert Express NEGATIVE (NEGATIVE)
[2022-09-11] MEDS ORDERED: DELTASONE 20 MG PO ONE (21:36)
[2022-09-11] MEDS ORDERED: DELTASONE 20 MG ONE (21:36)
[2022-09-11] MEDS ORDERED: HYDROCODONE-ACETAMIN 2.5-108/5 ML SOLUTION PO STA (21:49)
[2022-09-11] MEDS ORDERED: HYDROCODONE-ACETAMIN 2.5-108/5 ML SOLUTION ONE (21:52)
[2022-09-11 22:01] VITALS: BP 129/82; O2SAT 96
== END 2022-09-11 22:01 | disposition home or self-care (01) ==
LOC: ED 19:29
DX: J02.9 Acute pharyngitis, unspecified (principal); R05.1 Acute cough; Z79.891 Long term (current) use of opiate analgesic; Z79.52 Long term (current) use of systemic steroids; Z28.310 Unvaccinated for COVID-19
CPT/HCPCS: 0241U; 36415; 86308; 87651; 99283; A9270-GY

== ENCOUNTER 2023-01-15 22:28 | Emergency (ER) | payer BC ==
[2023-01-15] MEDS ORDERED: BABY ASPIRIN 81 MG CHEW PO ONE (22:29)
[2023-01-15] MEDS ORDERED: VERSED 5 MG/5 ML IV ONE (22:29)
[2023-01-15] MEDS ORDERED: Sodium Chloride 0.9% 1000 ML 1,000 ML IV SCH (22:30)
[2023-01-15 23:00] LABS: Absolute Neutrophil Ct (ANC) 3.31 x10^3/uL (1.4-6.9); BASOPHIL % 0.5 % (0.0-0.4); Basophil (Absolute #) 0.03 x10^3/uL (0-0.4); Eosinophil (Absolute #) 0.12 x10^3/uL (0-0.5); Hematocrit 46.9 % (42-50); Hemoglobin 15.7 g/dL (12.5-18.0); IMMATURE GRAN # 0.01 x10^3u/L (0.00-0.03); IMMATURE GRAN % 0.2 % (0.00-0.4); Lymphocyte (Absolute #) 2.05 x10^3/uL (1.0-4.6); Lymphocytes % 33.3 % (24.0-44.0); Mean Corpuscular Hemoglobin 30.1 pg (26-32); Mean Corpuscular Hgb Concent. 33.5 g/dL (32-36); Mean Platelet Volume 9.6 fL (7.5-11.0); Monocyte (Absolute #) 0.63 x10^3/uL (0.0-1.3); Monocytes % 10.2 % (0.0-12.0); Neutrophil % 53.8 % (36.0-66.0); Platelet Count 226 x10^3/uL (150-450); Red Blood Count 5.21 x10^6/uL (4.1-5.6); Red Cell Distribution Width 12.2 % (11.5-14.0); White Blood Count 6.2 x10^3/uL (4.0-10.5)
[2023-01-15 23:14] LABS: ALBUMIN 4.3 g/dL (3.5-5.0); ALKALINE PHOSPHATASE 66 U/L (38-126); AMYLASE 70 U/L (30-110); BLOOD UREA NITROGEN 17 mg/dL (9-20); CHLORIDE 108 mmol/L (98-107); Calcium 8.9 mg/dL (8.4-10.2); Carbon Dioxide 23 mmol/L (22-30); EST GLOMERULAR FILTRATION RATE > 60.0 ML/MIN; Glucose 107 mg/dL (74-106); LIPASE 58 U/L (23-300); Potassium 3.5 mmol/L (3.5-5.1); SGOT/AST 23 U/L (17-59); SGPT/ALT 24 U/L (0-50); SODIUM 141 mmol/L (137-145); Total Protein 7.6 g/dL (6.3-8.2)
[2023-01-15 23:16] LABS: Appearance Clear (Clear); Bacteria None Seen /HPF (None Seen); Bilirubin Negative (Negative); Blood Negative (Negative); Epithelial Cells None Seen /HPF (None Seen); Glucose, Urine Negative (Negative); Hyaline Casts NONE SEEN /LPF (0-2); Ketones Negative (Negative); Leukocyte Esterase Negative (Negative); Nitrite Negative (Negative); Ph 7.5 (4.6-8.0); Protein,Urine Dip Negative (Negative); RBC 0-2 /HPF (0-5); Specific Gravity 1.025 (1.005-1.030); WBC 0-2 /HPF (0-5)
[2023-01-15 23:18] LABS: D-DIMER QUANTITATIVE < 0.19 mg/L (0.0-0.50); INR 1.02 (0.8-3.0); PROTIME 11.1 SECONDS (9.4-12.5); PTT 29.3 SECONDS (25.1-36.5)
[2023-01-15 23:18] LABS: ADD URINE CULTURE? NO (NO)
[2023-01-15] MEDS ORDERED: MORPHINE SULFATE 4 MG INJ IV ONE (23:32)
[2023-01-15] MEDS ORDERED: TORAdol 30 mg Injection IV ONE (23:34)
[2023-01-15] MEDS ORDERED: BABY ASPIRIN 81 MG CHEW ONE (23:37)
[2023-01-15 23:38] LABS: Amphetamine,Urine NEGATIVE (NEGATIVE); Barbiturate,Urine NEGATIVE (NEGATIVE); Benzodiazepine,Urine NEGATIVE (NEGATIVE); Cocaine,Urine NEGATIVE (NEGATIVE); Methadone,Urine NEGATIVE (NEGATIVE); THC,Urine NEGATIVE (NEGATIVE)
[2023-01-15] MEDS ORDERED: Sodium Chloride 0.9% 1000 ML 1,000 ML ONE (23:38)
[2023-01-15] MEDS ORDERED: TORAdol 30 mg Injection ONE (23:38)
[2023-01-16 00:02] LABS: Opiate,Urine NEGATIVE (NEGATIVE); PCP,Urine NEGATIVE (NEGATIVE)
--- NOTE | 2023-01-16 00:13 | ERPHSYRPT ---
- History of Present Illness Time Seen by Provider: 01/15/23 22:55 Historian: patient Exam Limitations: no limitations Patient Subjective Stated Complaint: pt states "I started having chest pain earlier this morning and it went away. it started hurting again about 8 pm and hasn't went away." Triage Nursing Assessment: pt ambulatory to bed by self, pt alert and oriented x3, pt c/o chest pain that he describes as a constant ache in center of chest that radiates to both shoulders, pt denies any medical hx other than asthma as a child, lungs clear and equal throughout, +2 radial pulses Physician History: Patient is a 27-year-old male who presents with a complaint of chest pain for 10-1/2 hours. He awoke not feeling good and did not go to work but developed substernal pain which radiates to the ribs into the shoulders. He reports shortness of breath nausea and vomiting once and no prior history of any chest or lung problems. He also describes the pain is pleuritic. Nitro Today/Relief: no nitro taken today Aspirin Treatment Today: no aspirin today, 325 mg x 1, provided by ED Allergies/Adverse Reactions: No Known Drug Allergies Allergy (Verified 01/15/23 22:39) Home Medications: Venlafaxine HCl [Effexor Xr] 37.5 mg PO DAILY 01/15/23 [History] Hx Tetanus, Diphtheria Vaccination/Date Given: Yes Hx Influenza Vaccination/Date Given: No Hx Pneumococcal Vaccination/Date Given: No Immunizations Up to Date: Yes Travel Risk - International Travel Have you traveled outside of the country in past 3 weeks: No - Coronavirus Screening Are you exhibiting any of the following symptoms?: No Close contact with a COVID-19 positive Pt in past 14-21 Days: No - Vaccine Status Have you recieved a Covid-19 vaccination: No - Review of Systems Constitutional: No Fever, No Chills Eyes: No Symptoms Ears, Nose, & Throat: No Symptoms Respiratory: Dyspnea, Dyspnea on Exertion (MAE), No Cough Cardiac: Chest Pain (Pleuritic), No Edema, No Syncope Abdominal/Gastrointestinal: Nausea, Vomiting, No Abdominal Pain, No Diarrhea Genitourinary Symptoms: No Dysuria Musculoskeletal: No Back Pain, No Neck Pain Skin: No Rash Neurological: No Dizziness, No Focal Weakness, No Sensory Changes Psychological: No Symptoms Endocrine: No Symptoms All Other Systems: Reviewed and Negative - Past Medical History Pertinent Past Medical History: No Neurological History: No Pertinent History ENT History: No Pertinent History Cardiac History: No Pertinent History Respiratory History: No Pertinent History Endocrine Medical History: No Pertinent History Musculoskeletal History: No Pertinent History GI Medical History: No Pertinent History History: No Pertinent History Psycho-Social History: No Pertinent History Male Reproductive Disorders: No Pertinent History - Past Surgical History Past Surgical History: No Neuro Surgical History: No Pertinent History Cardiac: No Pertinent History Respiratory: No Pertinent History Gastrointestinal: No Pertinent History Genitourinary: No Pertinent History Musculoskeletal: No Pertinent History Male Surgical History: No Pertinent History - Social History Smoking Status: Never smoker Exposure to second hand smoke: No Alcohol Use: Socially Drug Use: none Patient Lives Alone: No Significant Family History: no pertinent family hx - Nursing Vital Signs Nursing Vital Signs: Initial Vital Signs Temperature 97.5 F 01/15/23 22:41 Pulse Rate 71 01/15/23 22:41 Respiratory Rate 22 01/15/23 22:41 Blood Pressure 142/88 01/15/23 22:41 O2 Sat by Pulse Oximetry 96 01/15/23 22:41 Pain Scale Pain Intensity 6 - Physical Exam General Appearance: mild distress, alert Eye Exam: PERRL/EOMI, eyes nml inspection Ears, Nose, Throat Exam: normal ENT inspection, moist mucous membranes Neck Exam: normal inspection, non-tender, supple, full range of motion Respiratory Exam: normal breath sounds, lungs clear, No respiratory distress Cardiovascular Exam: regular rate/rhythm, normal heart sounds Gastrointestinal/Abdomen Exam: soft, No tenderness, No mass Back Exam: normal inspection, No CVA tenderness, No vertebral tenderness Extremity Exam: normal inspection, normal range of motion Neurologic Exam: alert, oriented x 3, cooperative, normal mood/affect, sensation nml, No motor deficits Skin Exam: normal color, warm, dry SpO2 Interpretation: normal SpO2: 96 O2 Delivery: Room Air - Course Nursing assessment & vital signs reviewed: Yes EKG Interpreted by Me: RATE (72), Sinus Rhythm, Left [place] Deviation, Non- specific ST Changes - Radiology Exams Chest X-ray Interpretation: Interpreted by me Ordered Tests: Active Orders 24 hr Category Date Time Status Magazine Publisher STAT Care 01/15/23 22:30 Active EKG-ER Only STAT Care 01/15/23 22:29 Active IV Insertion STAT Care 01/15/23 22:29 Active CHEST 1 VIEW (PORTABLE) Stat Exams 01/15/23 22:29 Taken AMYLASE Stat Lab 01/15/23 22:50 Completed CBC W DIFF Stat Lab 01/15/23 22:50 Completed CMP Stat Lab 01/15/23 22:50 Completed D-DIMER QUANTITATIVE Stat Lab 01/15/23 22:50 Completed LIPASE Stat Lab 01/15/23 22:50 Completed Lactic Acid Stat Lab 01/15/23 23:29 Completed PROTIME WITH INR Stat Lab 01/15/23 22:50 Completed PTT Stat Lab 01/15/23 22:50 Completed SED RATE [Erythrocyte Sedimentation Rate] Stat Lab 01/15/23 22:50 Completed TROPONIN Q4H Lab 01/15/23 22:50 Completed TROPONIN Q4H Lab 01/16/23 02:30 Ordered TROPONIN Q4H Lab 01/16/23 06:30 Ordered UA W/RFX UR CULTURE Stat Lab 01/15/23 22:59 Completed Urine Triage Profile Stat Lab 01/15/23 22:59 Completed Medication Summary Generic Name Dose Route Start Last Admin Trade Name Freq PRN Reason Stop Dose Admin Sodium Chloride 1,000 mls @ 100 mls/hr 01/15/23 22:30 01/15/23 23:39 Sodium Chloride 0.9% 1000 Ml IV 02/14/23 22:29 100 mls/hr .Q10H YEFRI Administration Discontinued Medications Generic Name Dose Route Start Last Admin Trade Name Freq PRN Reason Stop Dose Admin Aspirin 324 mg 01/15/23 22:29 01/15/23 23:40 Aspirin 81 Mg Tab.Chew PO 01/15/23 22:30 324 mg STAT ONE Administration Aspirin Confirm 01/15/23 23:37 Aspirin 81 Mg Tab.Chew Administered 01/15/23 23:38 Dose 324 mg .ROUTE .STK-MED ONE Ketorolac Tromethamine 30 mg 01/15/23 23:34 01/15/23 23:40 Ketorolac Tromethamine 30 Mg/Ml Inj IV 01/15/23 23:35 30 mg STAT ONE Administration Ketorolac Tromethamine Confirm 01/15/23 23:38 Ketorolac Tromethamine 30 Mg/Ml Inj Administered 01/15/23 23:39 Dose 30 mg .ROUTE .STK-MED ONE Midazolam HCl 4 mg 01/15/23 22:29 01/15/23 23:32 Midazolam Hcl 5 Mg/5 Ml Vial IV 01/15/23 22:30 Not Given STAT ONE Morphine Sulfate 4 mg 01/15/23 23:32 01/15/23 23:35 Morphine Sulfate 4 Mg/Ml Injection IV 01/15/23 23:33 Not Given STAT ONE Lab/Rad Data: Laboratory Result Diagrams 01/15/23 22:50 01/15/23 22:50 Laboratory Results 01/15/23 01/15/23 01/15/23 Range/Units 23:29 22:59 22:59 WBC (4.0-10.5) x10^3/uL RBC (4.1-5.6) x10^6/uL Hgb (12.5-18.0) g/dL Hct (42-50) % MCV (78-100) fL MCH (26-32) pg MCHC (32-36) g/dL RDW (11.5-14.0) % Plt Count (150-450) x10^3/uL MPV (7.5-11.0) fL Gran % (36.0-66.0) % Immature Gran % (Auto) (0.00-0.4) % Nucleat RBC Rel Count (0.00-0.1) % Eos # (Auto) (0-0.5) x10^3/uL Immature Gran # (Auto) (0.00-0.03) x10^3u/L Absolute Lymphs (auto) (1.0-4.6) x10^3/uL Absolute Monos (auto) (0.0-1.3) x10^3/uL Absolute Nucleated RBC (0.00-0.01) x10^3u/L Lymphocytes % (24.0-44.0) % Monocytes % (0.0-12.0) % Eosinophils % (0.00-5.0) % Basophils % (0.0-0.4) % Absolute Granulocytes (1.4-6.9) x10^3/uL Basophils # (0-0.4) x10^3/uL ESR (0-15) mm/hr PT (9.4-12.5) SECONDS INR (0.8-3.0) APTT (25.1-36.5) SECONDS D-Dimer (0.0-0.50) mg/L Sodium (137-145) mmol/L Potassium (3.5-5.1) mmol/L Chloride (98-107) mmol/L Carbon Dioxide (22-30) mmol/L Anion Gap (5-15) MEQ/L BUN (9-20) mg/dL Creatinine (0.66-1.25) mg/dL Estimated GFR ML/MIN Glucose (74-106) mg/dL Lactic Acid 1.4 (0.4-2.0) Calcium (8.4-10.2) mg/dL Total Bilirubin (0.2-1.3) mg/dL AST (17-59) U/L ALT (0-50) U/L Alkaline Phosphatase (38-126) U/L Troponin I (0.000-0.034) ng/mL Serum Total Protein (6.3-8.2) g/dL Albumin (3.5-5.0) g/dL Amylase (30-110) U/L Lipase (23-300) U/L Urine Color Yellow (Yellow) Urine Appearance Clear (Clear) Urine pH 7.5 (4.6-8.0) Ur Specific Ione 1.025 (1.005-1.030) Urine Protein Negative (Negative) Urine Glucose (UA) Negative (Negative) mg/dL Urine Ketones Negative (Negative) Urine Blood Negative (Negative) Urine Nitrite Negative (Negative) Urine Bilirubin Negative (Negative) Urine Urobilinogen 1.0 A (0.2) mg/dL Ur Leukocyte Esterase Negative (Negative) U Hyaline Cast (Auto) NONE SEEN (0-2) /LPF Urine Microscopic RBC 0-2 (0-5) /HPF Urine Microscopic WBC 0-2 (0-5) /HPF Ur Epithelial Cells None Seen (None Seen) /HPF Urine Bacteria None Seen (None Seen) /HPF Urine Culture Reflexed NO (NO) Urine Opiates Level NEGATIVE (NEGATIVE) Ur Methadone NEGATIVE (NEGATIVE) Urine Barbiturates NEGATIVE (NEGATIVE) Ur Phencyclidine (PCP) NEGATIVE (NEGATIVE) Urine Amphetamine NEGATIVE (NEGATIVE) U Benzodiazepine Level NEGATIVE (NEGATIVE) Urine Cocaine NEGATIVE (NEGATIVE) Urine Marijuana (THC) NEGATIVE (NEGATIVE) 01/15/23 01/15/23 01/15/23 Range/Units 22:50 22:50 22:50 WBC (4.0-10.5) x10^3/uL RBC (4.1-5.6) x10^6/uL Hgb (12.5-18.0) g/dL Hct (42-50) % MCV (78-100) fL MCH (26-32) pg MCHC (32-36) g/dL RDW (11.5-14.0) % Plt Count (150-450) x10^3/uL MPV (7.5-11.0) fL Gran % (36.0-66.0) % Immature Gran % (Auto) (0.00-0.4) % Nucleat RBC Rel Count (0.00-0.1) % Eos # (Auto) (0-0.5) x10^3/uL Immature Gran # (Auto) (0.00-0.03) x10^3u/L Absolute Lymphs (auto) (1.0-4.6) x10^3/uL Absolute Monos (auto) (0.0-1.3) x10^3/uL Absolute Nucleated RBC (0.00-0.01) x10^3u/L Lymphocytes % (24.0-44.0) % Monocytes % (0.0-12.0) % Eosinophils % (0.00-5.0) % Basophils % (0.0-0.4) % Absolute Granulocytes (1.4-6.9) x10^3/uL Basophils # (0-0.4) x10^3/uL ESR 9 (0-15) mm/hr PT 11.1 (9.4-12.5) SECONDS INR 1.02 (0.8-3.0) APTT 29.3 (25.1-36.5) SECONDS D-Dimer < 0.19 (0.0-0.50) mg/L Sodium (137-145) mmol/L Potassium (3.5-5.1) mmol/L Chloride (98-107) mmol/L Carbon Dioxide (22-30) mmol/L Anion Gap (5-15) MEQ/L BUN (9-20) mg/dL Creatinine (0.66-1.25) mg/dL Estimated GFR ML/MIN Glucose (74-106) mg/dL Lactic Acid (0.4-2.0) Calcium (8.4-10.2) mg/dL Total Bilirubin (0.2-1.3) mg/dL AST (17-59) U/L ALT (0-50) U/L Alkaline Phosphatase (38-126) U/L Troponin I < 0.012 (0.000-0.034) ng/mL Serum Total Protein (6.3-8.2) g/dL Albumin (3.5-5.0) g/dL Amylase (30-110) U/L Lipase (23-300) U/L Urine Color (Yellow) Urine Appearance (Clear) Urine pH (4.6-8.0) Ur Specific Ione (1.005-1.030) Urine Protein (Negative) Urine Glucose (UA) (Negative) mg/dL Urine Ketones (Negative) Urine Blood (Negative) Urine Nitrite (Negative) Urine Bilirubin (Negative) Urine Urobilinogen (0.2) mg/dL Ur Leukocyte Esterase (Negative) U Hyaline Cast (Auto) (0-2) /LPF Urine Microscopic RBC (0-5) /HPF Urine Microscopic WBC (0-5) /HPF Ur Epithelial Cells (None Seen) /HPF Urine Bacteria (None Seen) /HPF Urine Culture Reflexed (NO) Urine Opiates Level (NEGATIVE) Ur Methadone (NEGATIVE) Urine Barbiturates (NEGATIVE) Ur Phencyclidine (PCP) (NEGATIVE) Urine Amphetamine (NEGATIVE) U Benzodiazepine Level (NEGATIVE) Urine Cocaine (NEGATIVE) Urine Marijuana (THC) (NEGATIVE) 01/15/23 01/15/23 Range/Units 22:50 22:50 WBC 6.2 (4.0-10.5) x10^3/uL RBC 5.21 (4.1-5.6) x10^6/uL Hgb 15.7 (12.5-18.0) g/dL Hct 46.9 (42-50) % MCV 90.0 (78-100) fL MCH 30.1 (26-32) pg MCHC 33.5 (32-36) g/dL RDW 12.2 (11.5-14.0) % Plt Count 226 (150-450) x10^3/uL MPV 9.6 (7.5-11.0) fL Gran % 53.8 (36.0-66.0) % Immature Gran % (Auto) 0.2 (0.00-0.4) % Nucleat RBC Rel Count 0.0 (0.00-0.1) % Eos # (Auto) 0.12 (0-0.5) x10^3/uL Immature Gran # (Auto) 0.01 (0.00-0.03) x10^3u/L Absolute Lymphs (auto) 2.05 (1.0-4.6) x10^3/uL Absolute Monos (auto) 0.63 (0.0-1.3) x10^3/uL Absolute Nucleated RBC 0.00 (0.00-0.01) x10^3u/L Lymphocytes % 33.3 (24.0-44.0) % Monocytes % 10.2 (0.0-12.0) % Eosinophils % 2.0 (0.00-5.0) % Basophils % 0.5 (0.0-0.4) % Absolute Granulocytes 3.31 (1.4-6.9) x10^3/uL Basophils # 0.03 (0-0.4) x10^3/uL ESR (0-15) mm/hr PT (9.4-12.5) SECONDS INR (0.8-3.0) APTT (25.1-36.5) SECONDS D-Dimer (0.0-0.50) mg/L Sodium 141 (137-145) mmol/L Potassium 3.5 (3.5-5.1) mmol/L Chloride 108 H (98-107) mmol/L Carbon Dioxide 23 (22-30) mmol/L Anion Gap 14.0 (5-15) MEQ/L BUN 17 (9-20) mg/dL Creatinine 0.90 (0.66-1.25) mg/dL Estimated GFR > 60.0 ML/MIN Glucose 107 H (74-106) mg/dL Lactic Acid (0.4-2.0) Calcium 8.9 (8.4-10.2) mg/dL Total Bilirubin 0.70 (0.2-1.3) mg/dL AST 23 (17-59) U/L ALT 24 (0-50) U/L Alkaline Phosphatase 66 (38-126) U/L Troponin I (0.000-0.034) ng/mL Serum Total Protein 7.6 (6.3-8.2) g/dL Albumin 4.3 (3.5-5.0) g/dL Amylase 70 (30-110) U/L Lipase 58 (23-300) U/L Urine Color (Yellow) Urine Appearance (Clear) Urine pH (4.6-8.0) Ur Specific Ione (1.005-1.030) Urine Protein (Negative) Urine Glucose (UA) (Negative) mg/dL Urine Ketones (Negative) Urine Blood (Negative) Urine Nitrite (Negative) Urine Bilirubin (Negative) Urine Urobilinogen (0.2) mg/dL Ur Leukocyte Esterase (Negative) U Hyaline Cast (Auto) (0-2) /LPF Urine Microscopic RBC (0-5) /HPF Urine Microscopic WBC (0-5) /HPF Ur Epithelial Cells (None Seen) /HPF Urine Bacteria (None Seen) /HPF Urine Culture Reflexed (NO) Urine Opiates Level (NEGATIVE) Ur Methadone (NEGATIVE) Urine Barbiturates (NEGATIVE) Ur Phencyclidine (PCP) (NEGATIVE) Urine Amphetamine (NEGATIVE) U Benzodiazepine Level (NEGATIVE) Urine Cocaine (NEGATIVE) Urine Marijuana (THC) (NEGATIVE) - Progress Progress: improved Air Movement: good Blood Culture(s) Obtained: No Antibiotics given: No Medical Desision Making - Diagnostic Testing Diagnostic test were ordered, analyzed, and reviewed by me: Yes Radiological Interpretation: Interpreted by me - Risk of complications The pt has a mod risk of morbidity or mortality based on: Need for prescription drug management - Departure Departure Disposition: Home Clinical Impression: Pleurisy Condition: Stable Critical Care Time: No Referrals: AYDIN NARANJO MD [Primary Care Provider] - Follow up/PCP as directed Instructions: Chest Pain (DC) Prescriptions: Prednisone 10 mg [Deltasone 10 mg] 20 mg PO BID 3 Days #12 tablet Diclofenac Sodium 50 mg [Voltaren 50 mg] 50 mg PO TID 5 Days #15 tablet
[2023-01-16 00:16] VITALS: BP 122/92
[2023-01-16 00:27] VITALS: O2SAT 96
[2023-01-16] MEDS ORDERED: solu-MEDROL 125 MG, Sterile H2O 10 ml 2 ML IV ONE ×2 (00:28)
[2023-01-16] MEDS ORDERED: Sterile H2O 10 ml IJ ONE (00:32)
[2023-01-16] MEDS ORDERED: solu-MEDROL ONE (00:32)
[2023-01-16 00:46] VITALS: PULSE 70
--- NOTE | 2023-01-16 08:51 | XRAY ---
Indication: Chest pain. Comparison: February 27, 2018 Portable chest inflated and clear. Heart not enlarged. Bony thorax intact. No new/acute findings.
== END 2023-01-16 00:46 | disposition home or self-care (01) ==
LOC: ED 22:28
DX: R09.1 Pleurisy (principal); R07.9 Chest pain, unspecified; R06.02 Shortness of breath; R11.2 Nausea with vomiting, unspecified; Z79.52 Long term (current) use of systemic steroids; Z79.899 Other long term (current) drug therapy; Z28.310 Unvaccinated for COVID-19
CPT/HCPCS: 36000; 36415; 71045; 80053; 80307; 81001; 82150; 83605; 83690; 84484; 85025; 85379; 85610; 85652; 85730; 86140; 93005; 93041; 96374; 99284; J1885; J2930; A9270-GY

== ENCOUNTER 2023-09-17 22:09 | Emergency (ER) | payer BC ==
[2023-09-17 22:51] VITALS: TEMP 97.8
--- NOTE | 2023-09-17 23:04 | ERPHSYRPT ---
- History of Present Illness Time Seen by Provider: 09/17/23 23:03 Source: patient, family Exam Limitations: no limitations Patient Subjective Stated Complaint: pt states "I had a headache since sunday that is getting worse." Triage Nursing Assessment: pt ambulatory to bed by self with steady gait, pt alert and oriented x3, skin pwd, pt c/o R sided headache since last sunday where the pain has gotten worse with dizziness at times. pt denies dizziness at this time. pt denies any fever, body aches, sore throat, cough, or any flu like symptoms Physician History: This is a 28-year-old white male patient who presents with 1 week history of right-sided headache. Patient denies head trauma. He has no flulike symptoms. First couple of days he had some dizziness but the latter 5 or 6 days he has not had any dizziness. He still has the right-sided headache that is not responding to Tylenol or ibuprofen. Patient denies neck pain. He has no fevers. He has no shortness of breath. He has had no visual changes. He has no chest pain. He has no body aches. He has not seen his primary care provider. Timing/Duration: week(s) (1) Quality: throbbing Head Pain Location: temporal, parietal (Right side right side) Severity of Pain-Max: moderate Severity of Pain-Current: mild (Moderate) Recent Head Trauma: no recent headache/trauma Modifying Factors: Improves With: other (Nothing) Associated Symptoms: denies symptoms Previous symptoms: no prior history, no recent treatment Allergies/Adverse Reactions: No Known Drug Allergies Allergy (Verified 09/17/23 22:50) Home Medications: Venlafaxine HCl [Effexor Xr] 37.5 mg PO DAILY 01/15/23 [History] Hx Tetanus, Diphtheria Vaccination/Date Given: Yes Hx Influenza Vaccination/Date Given: No Hx Pneumococcal Vaccination/Date Given: No Immunizations Up to Date: Yes Travel Risk - International Travel Have you traveled outside of the country in past 3 weeks: No - Coronavirus Screening Are you exhibiting any of the following symptoms?: No Close contact with a COVID-19 positive Pt in past 14-21 Days: No - Vaccine Status Have you recieved a Covid-19 vaccination: No - Review of Systems Constitutional: No Symptoms Eyes: No Symptoms Ears, Nose, & Throat: No Symptoms Respiratory: No Symptoms Cardiac: No Symptoms Abdominal/Gastrointestinal: No Symptoms Genitourinary Symptoms: No Symptoms Musculoskeletal: No Symptoms Skin: No Symptoms Neurological: Headache (Right side) Psychological: No Symptoms Endocrine: No Symptoms Hematologic/Lymphatic: No Symptoms Immunological/Allergic: No Symptoms All Other Systems: Reviewed and Negative - Past Medical History Pertinent Past Medical History: No Neurological History: No Pertinent History ENT History: No Pertinent History Cardiac History: No Pertinent History, Hypertension Respiratory History: No Pertinent History Endocrine Medical History: No Pertinent History Musculoskeletal History: No Pertinent History GI Medical History: No Pertinent History History: No Pertinent History Psycho-Social History: No Pertinent History Male Reproductive Disorders: No Pertinent History - Past Surgical History Past Surgical History: No Neuro Surgical History: No Pertinent History Cardiac: No Pertinent History Respiratory: No Pertinent History Gastrointestinal: No Pertinent History Genitourinary: No Pertinent History Musculoskeletal: No Pertinent History Male Surgical History: No Pertinent History - Social History Smoking Status: Never smoker Exposure to second hand smoke: No Alcohol Use: Socially Drug Use: none Patient Lives Alone: No Significant Family History: no pertinent family hx - Nursing Vital Signs Nursing Vital Signs: Initial Vital Signs Temperature 97.8 F 09/17/23 22:51 Pulse Rate 50 L 09/17/23 22:51 Respiratory Rate 18 09/17/23 22:51 Blood Pressure 111/68 09/17/23 22:51 Pain Scale Pain Intensity 7 - Physical Exam General Appearance: no apparent distress, alert Eye Exam: PERRL/EOMI, eyes nml inspection Ears, Nose, Throat Exam: normal ENT inspection, moist mucous membranes Neck Exam: normal inspection, non-tender, supple, full range of motion Respiratory Exam: normal breath sounds, lungs clear, airway intact, No chest tenderness, No respiratory distress Cardiovascular Exam: regular rate/rhythm, normal heart sounds, normal peripheral pulses Gastrointestinal/Abdominal Exam: No tenderness, No guarding Back Exam: normal inspection, normal range of motion, No CVA tenderness, No vertebral tenderness Extremity Exam: normal inspection, normal range of motion, pelvis stable Mental Status Exam: alert, oriented x 3, 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 Exam: normal hearing, normal speech, PERRL, tongue midline Coordination/Gait Exam: normal gait, normal cerebellar function Motor/Sensory Exam: no motor deficit, no sensory deficit Skin Exam: normal color, warm, dry Lymphatic Exam: No adenopathy SpO2 Interpretation: normal O2 Delivery: Room Air - Course Nursing assessment & vital signs reviewed: Yes Ordered Tests: Active Orders 24 hr Category Date Time Status HEAD WITHOUT CONTRAST [CT] Stat Exams 09/17/23 23:03 Completed Medication Summary Discontinued Medications Generic Name Dose Route Start Last Admin Trade Name Harjinder PRN Reason Stop Dose Admin Oxycodone/Acetaminophen 1 tab 09/17/23 23:32 09/17/23 23:43 Oxycodone Hcl/Apap 5 Mg/325 Mg Tablet PO 09/17/23 23:33 1 tab STAT STA Administration Oxycodone/Acetaminophen Confirm 09/17/23 23:36 Oxycodone Hcl/Apap 5 Mg/325 Mg Tablet Administered 09/17/23 23:37 Dose 1 tab .ROUTE .STK-MED ONE - Progress Progress: improved, re-examined Air Movement: good Progress Note: 09/18/23 00:07 This patient's medical issue is 1 of low complexity. The level complex in the work-up performed is based on review the patient's past medical history, review of the patient's medication list, review the patient's drug allergy list, history of present illness and physical findings on examination. This patient's work-up includes CT scan of the head without contrast. The CT scan of the head without contrast was interpreted by the radiologist and I reviewed the impression. The impression is CT scan of the head without contrast is unremarkable. Blood Culture(s) Obtained: No Antibiotics given: No Counseled pt/family regarding: diagnosis, need for follow-up, rad results Medical Desision Making - Independent Historian Additional History obtained from: Spouse - Diagnostic Testing Diagnostic test were ordered, analyzed, and reviewed by me: Yes Radiological Interpretation: Reviewed by me, Teleradiologist Report - Risk of complications Minimal Risk: Minimal risk of morbidity - Departure Departure Disposition: Home Clinical Impression: Right-sided headache Condition: Stable Critical Care Time: No Referrals: AYDIN NARANJO MD [Primary Care Provider] - Follow up/PCP as directed Additional Instructions: Drink plenty of fluids. Continue using Tylenol and ibuprofen for pain control. Call your primary care provider today, 09/18/2023, to make arranges for follow- up appointment for further evaluation and management.
[2023-09-17] MEDS ORDERED: PERCOCET TABLET 5/325MG PO STA (23:32)
[2023-09-17] MEDS ORDERED: PERCOCET TABLET 5/325MG ONE (23:36)
--- NOTE | 2023-09-17 23:57 | XRAY ---
CLINICAL HISTORY:R sided headache x1 week COMPARISON:None. TECHNIQUE:Axial noncontrast CT scan of the brain was performed from the skull base to the high parietal region. FINDINGS: The visualized brain parenchyma shows du-white matter differentiation. No midline shift. No intracerebral or extra axial hematoma. Normal size and configuration of the cerebral ventricles. Normal CT appearance of the posterior fossa structures . The osseous structures in the skull base are unremarkable. No definite calvarium fractures. Mild mucosal thickening is seen in left maxillary sinus. Otherwise, the rest of the paranasal sinuses and mastoid air cells are clear. IMPRESSION: Unremarkable non-enhanced CT study of brain. Electronically Signed by: Johanna Croft MD. (09/17/2023 22:56:36 [employer])
[2023-09-18 00:05] VITALS: BP 111/67; PULSE 46; RESP 16; O2SAT 93
== END 2023-09-18 00:18 | disposition home or self-care (01) ==
LOC: ED 22:09
DX: R51.9 Headache, unspecified (principal); I10 Essential (primary) hypertension; Z79.899 Other long term (current) drug therapy; Z28.310 Unvaccinated for COVID-19
CPT/HCPCS: 36000; 70450; 99283; A9270-GY

== ENCOUNTER 2024-07-10 07:28 | Observation (INO) | payer BC ==
--- NOTE | 2024-07-10 07:56 | ERPHSYRPT ---
- History of Present Illness Time Seen by Provider: 07/10/24 07:36 Historian: patient Exam Limitations: no limitations Patient Subjective Stated Complaint: C/O right lower abdomen pain that started yesterday morning and hasn't resolved. Denies N/V. Triage Nursing Assessment: Patient ambulated back to ER without difficulties. He is alert and oriented. No SOB. Skin tone normal. Hypoactive bowel sounds. No increased pain with palpation. Physician History: 29 years old male presented to the ER with complaint of right side abdominal pain since morning. Patient reports dull cramping mild to moderate while resting, aggravated with palpation and movements to moderate to severe intensity, minimal associated nausea but no vomiting or diarrhea reported. Pain is more now in the right lower abdomen. No fever or chills reported. Denies any urinary complaints. Allergies/Adverse Reactions: No Known Drug Allergies Allergy (Verified 07/10/24 07:40) Home Medications: No Reportable Medications [No Reported Medications] 07/10/24 [History] Hx Tetanus, Diphtheria Vaccination/Date Given: Yes Hx Influenza Vaccination/Date Given: No Hx Pneumococcal Vaccination/Date Given: No Immunizations Up to Date: Yes Travel Risk - International Travel Have you traveled outside of the country in past 3 weeks: No - Emerging Infectious Disease Are you exhibiting symptoms associated with any current EIDs: Yes Symptoms: Abdominal Pain - Review of Systems Constitutional: No Symptoms Ears, Nose, & Throat: No Symptoms Respiratory: No Symptoms Cardiac: No Symptoms Abdominal/Gastrointestinal: Abdominal Pain, Nausea, Constipation Genitourinary Symptoms: No Symptoms Musculoskeletal: No Symptoms Skin: No Symptoms Neurological: No Symptoms Psychological: No Symptoms Endocrine: No Symptoms Hematologic/Lymphatic: No Symptoms Immunological/Allergic: No Symptoms - Past Medical History Pertinent Past Medical History: Yes Neurological History: Migraines ENT History: No Pertinent History Cardiac History: Hypertension Respiratory History: No Pertinent History Endocrine Medical History: No Pertinent History Musculoskeletal History: No Pertinent History GI Medical History: No Pertinent History History: No Pertinent History Psycho-Social History: No Pertinent History Male Reproductive Disorders: No Pertinent History - Past Surgical History Past Surgical History: No Neuro Surgical History: No Pertinent History Cardiac: No Pertinent History Respiratory: No Pertinent History Gastrointestinal: No Pertinent History Genitourinary: No Pertinent History Musculoskeletal: No Pertinent History Male Surgical History: No Pertinent History Significant Family History: no pertinent family hx - Social History Smoking Status: Never smoker Exposure to second hand smoke: No Alcohol Use: Socially Drug Use: none Patient Lives Alone: No - Social Determinants of Health Will the patient participate in the screening: Yes Do you worry about a steady place to live?: No Do you have any problems with any of the following?: No known problems In the past 12 months,have you had to go without utilities?: No Transportation Issues: No Has anyone in your support network made you feel unsafe?: No Have you or anyone in your house had to go without enough: No - Nursing Vital Signs Nursing Vital Signs: Initial Vital Signs Temperature 98.1 F 07/10/24 07:35 Pulse Rate 59 L 07/10/24 07:35 Respiratory Rate 19 07/10/24 07:35 Blood Pressure 125/77 07/10/24 07:35 O2 Sat by Pulse Oximetry 95 07/10/24 07:35 Pain Scale Pain Intensity 0 - Physical Exam General Appearance: no apparent distress, alert Eye Exam: PERRL/EOMI Ears, Nose, Throat Exam: normal ENT inspection Neck Exam: normal inspection, full range of motion Respiratory Exam: normal breath sounds, lungs clear Cardiovascular Exam: regular rate/rhythm, normal heart sounds Gastrointestinal/Abdomen Exam: soft, normal bowel sounds, tenderness (Right upper and lower quadrant with guarding but no rebound tenderness.) Back Exam: normal inspection, normal range of motion Extremity Exam: normal inspection, normal range of motion Neurologic Exam: alert, oriented x 3, cooperative, 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 nml as tested Skin Exam: normal color SpO2 Interpretation: normal SpO2: 95 O2 Delivery: Room Air Ordered Tests: Active Orders 24 hr Category Date Time Status IV Insertion STAT Care 07/10/24 07:53 Active NPO (ED) STAT Care 07/10/24 07:53 Active ABDOMEN AND PELVIS W/0 CONTRAS [CT] Stat Exams 07/10/24 07:53 Completed CBC W DIFF Stat Lab 07/10/24 07:50 Completed CMP Stat Lab 07/10/24 07:50 Completed LIPASE Stat Lab 07/10/24 07:50 Completed UA W/RFX UR CULTURE Stat Lab 07/10/24 09:33 Completed Medication Summary Generic Name Dose Route Start Last Admin Trade Name Freq PRN Reason Stop Dose Admin Piperacillin Sod/Tazobactam 100 mls @ 200 mls/hr 07/10/24 09:40 07/10/24 09:51 Sod 3.375 gm/ Sodium Chloride IV 07/10/24 10:09 200 mls/hr STAT ONE Administration Sodium Chloride 1,000 mls @ 125 mls/hr 07/10/24 09:45 07/10/24 09:51 Sodium Chloride 0.9% 1000 Ml IV 08/09/24 09:44 125 mls/hr .Q8H YEFRI Administration Discontinued Medications Generic Name Dose Route Start Last Admin Trade Name Harjinder PRN Reason Stop Dose Admin Sodium Chloride 1,000 mls @ 999 mls/hr 07/10/24 07:53 07/10/24 09:01 Sodium Chloride 0.9% 1000 Ml IV 07/10/24 08:53 Infused .Q1H1M STA Infusion Sodium Chloride Confirm 07/10/24 07:57 Sodium Chloride 0.9% 1000 Ml Administered 07/10/24 07:58 Dose 1,000 mls @ ud .ROUTE .STK-MED ONE Sodium Chloride Confirm 07/10/24 09:48 Sodium Chloride 100ml Mini-Bag Plus Administered 07/10/24 09:49 Dose 100 mls @ ud IV .STK-MED ONE Ketorolac Tromethamine 30 mg 07/10/24 07:53 07/10/24 07:58 Ketorolac Tromethamine 30 Mg/Ml Inj IV 07/10/24 07:54 30 mg STAT ONE Administration Ketorolac Tromethamine Confirm 07/10/24 07:57 Ketorolac Tromethamine 30 Mg/Ml Inj Administered 07/10/24 07:58 Dose 30 mg .ROUTE .STK-MED ONE Ondansetron HCl 4 mg 07/10/24 07:53 07/10/24 07:58 Ondansetron Hcl 4 Mg/2 Ml Vial IV 07/10/24 07:54 4 mg STAT ONE Administration Ondansetron HCl Confirm 07/10/24 07:57 Ondansetron Hcl 4 Mg/2 Ml Vial Administered 07/10/24 07:58 Dose 4 mg .ROUTE .STK-MED ONE Piperacillin Sod/Tazobactam Sod Confirm 07/10/24 09:47 Piperacillin/Tazobactam Sodium 3.375 Gm Vial Administered 07/10/24 09:48 Dose 3.375 gm IV .STK-MED ONE Lab/Rad Data: Laboratory Result Diagrams 07/10/24 07:50 07/10/24 07:50 Laboratory Results 07/10/24 07/10/24 07/10/24 Range/Units 09:33 07:50 07:50 WBC 10.1 H (4.23-9.07) x10^3/uL RBC 5.33 (4.63-6.08) x10^6/uL Hgb 16.0 (13.7-17.5) g/dL Hct 47.0 (40.1-51.0) % MCV 88.2 (79.0-92.2) fL MCH 30.0 (25.7-32.2) pg MCHC 34.0 (32.3-36.5) g/dL RDW 12.4 (11.6-14.4) % Plt Count 262 (163-337) x10^3/uL MPV 9.8 (9.4-12.4) fL Gran % 70.3 H (34.0-67.9) % Immature Gran % (Auto) 0.3 (0.001-0.429) % Nucleat RBC Rel Count 0.0 (0.00-0.2) % Eos # (Auto) 0.07 (0.04-0.54) x10^3/uL Immature Gran # (Auto) 0.03 (0.001-0.031) x10^3u/L Absolute Lymphs (auto) 1.91 (1.32-3.57) x10^3/uL Absolute Monos (auto) 0.94 H (0.30-0.82) x10^3/uL Absolute Nucleated RBC 0.00 (0.00-0.012) x10^3u/L Lymphocytes % 19.0 L (21.8-53.1) % Monocytes % 9.3 (5.3-12.2) % Eosinophils % 0.7 L (0.8-7.0) % Basophils % 0.4 (0.2-1.2) % Absolute Granulocytes 7.08 H (1.78-5.38) x10^3/uL Basophils # 0.04 (0.01-0.08) x10^3/uL Sodium 143 (135-145) mmol/L Potassium 3.8 (3.5-5.1) mmol/L Chloride 106 (98-107) mmol/L Carbon Dioxide 26 (22-30) mmol/L Anion Gap 14.4 (5-15) MEQ/L BUN 16 (9-20) mg/dL Creatinine 0.90 (0.66-1.25) mg/dL Estimated GFR 117.8 ML/MIN Glucose 93 (74-106) mg/dL Calcium 9.7 (8.4-10.2) mg/dL Total Bilirubin 2.10 H (0.2-1.3) mg/dL AST 26 (17-59) U/L ALT 20 (0-50) U/L Alkaline Phosphatase 56 (38-126) U/L Serum Total Protein 8.2 (6.3-8.2) g/dL Albumin 4.7 (3.5-5.0) g/dL Lipase 52 (23-300) U/L Urine Color Yellow (Yellow) Urine Appearance Cloudy A (Clear) Urine pH 5.5 (4.6-8.0) Ur Specific Upper Tract 1.025 (1.005-1.030) Urine Protein Negative (Negative) Urine Glucose (UA) Negative (Negative) mg/dL Urine Ketones Negative (Negative) Urine Blood Negative (Negative) Urine Nitrite Negative (Negative) Urine Bilirubin Negative (Negative) Urine Urobilinogen 1.0 A (0.2) mg/dL Ur Leukocyte Esterase Negative (Negative) U Hyaline Cast (Auto) NONE SEEN (0-2) /LPF Urine Microscopic RBC 0-2 (0-5) /HPF Urine Microscopic WBC 0-2 (0-5) /HPF Ur Epithelial Cells None Seen (None Seen) /HPF Urine Bacteria None Seen (None Seen) /HPF Urine Culture Reflexed NO (NO) - Progress Progress: improved, pain not gone completely, re-examined Progress Note: 07/10/24 09:44 29 years old is evaluated in the ER for right-sided abdominal pain since yesterday with progressively worsening.. Patient has guarding on the right si de. No rebound tenderness. Given fluids and symptomatic treatment, on reevaluation pain is better but not completely resolved. Workup showed white count of 10, fairly unremarkable chemistries except for total bili of 2.1. Obtained CT abdomen pelvis without contrast which showed finding consistent with early acute appendicitis. Given a dose of Zosyn. 07/10/24 09:[address] Pravin Morelos and patient will be taken to the OR later today. Discussed with Dr. Zaidi, reviewed history, workup and general surgery recommendation and patient is excepted for admission. I have shared the results of workup, plan of care with patient who understands and agrees. Discussed with .: Juan Counseled pt/family regarding: lab results, diagnosis, rad results Medical Desision Making - Discussion of managment Care discussed with:: specialist (Dr. Morelos general surgery) Reviewed:: Test results Agreed on:: Treatment plan, place in obs Will see patient: in hospital - Diagnostic Testing Diagnostic test were ordered, analyzed, and reviewed by me: Yes Radiological Interpretation: Reviewed by me - Risk of complications The pt has a mod risk of morbidity or mortality based on: Need for prescription drug management, Need for major surgery in otherwise healthy patient The pt has a high risk of morbidity or mortality based on: Decision regarding hospitilization or escalation of hosp level of care - Departure Departure Disposition: Observation Clinical Impression: Acute appendicitis Condition: Stable Critical Care Time: No Referrals: AYDIN NARANJO MD [Primary Care Provider] - Follow up/PCP as directed
[2024-07-10] MEDS ORDERED: TORAdol 30 mg Injection ONE ×2 (07:57→14:34)
[2024-07-10] MEDS ORDERED: Zofran 4 MG/2 ML VIAL ONE ×2 (07:57→14:53)
[2024-07-10] MEDS ORDERED: Sodium Chloride 0.9% 1000 ML 1,000 ML ONE ×2 (07:57→09:48)
[2024-07-10] MEDS: Zofran 4 MG/2 ML VIAL IV ONE (07:58)
[2024-07-10] MEDS: Sodium Chloride 0.9% 1000 ML 1,000 ML IV STA (07:58)
[2024-07-10] MEDS: TORAdol 30 mg Injection IV ONE (07:58)
[2024-07-10 08:20] LABS: Absolute Neutrophil Ct (ANC) 7.08 x10^3/uL (1.78-5.38); BASOPHIL % 0.4 % (0.2-1.2); Basophil (Absolute #) 0.04 x10^3/uL (0.01-0.08); Eosinophil % 0.7 % (0.8-7.0); Eosinophil (Absolute #) 0.07 x10^3/uL (0.04-0.54); IMMATURE GRAN # 0.03 x10^3u/L (0.001-0.031); IMMATURE GRAN % 0.3 % (0.001-0.429); Lymphocyte (Absolute #) 1.91 x10^3/uL (1.32-3.57); Mean Cell Volume 88.2 fL (79.0-92.2); Mean Platelet Volume 9.8 fL (9.4-12.4); Monocyte (Absolute #) 0.94 x10^3/uL (0.30-0.82); Monocytes % 9.3 % (5.3-12.2); Neutrophil % 70.3 % (34.0-67.9); Platelet Count 262 x10^3/uL (163-337); Red Blood Count 5.33 x10^6/uL (4.63-6.08); Red Cell Distribution Width 12.4 % (11.6-14.4); White Blood Count 10.1 x10^3/uL (4.23-9.07)
[2024-07-10 08:30] LABS: ALBUMIN 4.7 g/dL (3.5-5.0); ANION GAP 14.4 MEQ/L (5-15); BILIRUBIN,TOTAL 2.1 mg/dL (0.2-1.3); Calcium 9.7 mg/dL (8.4-10.2); Creatinine 1 0.9 mg/dL (0.66-1.25); EST GLOMERULAR FILTRATION RATE 117.8 ML/MIN; Potassium 3.8 mmol/L (3.5-5.1); Total Protein 8.2 g/dL (6.3-8.2)
--- NOTE | 2024-07-10 09:15 | XRAY ---
Indication: Right lower quadrant pain. Multiple contiguous axial images obtained through the abdomen and pelvis without contrast. Comparison: August 23, 2019 Lung bases clear. Heart not enlarged. Noncontrasted stomach and bowel loops appear nonobstructed. Appendix is now prominent up to 1.4 cm diameter with faint periappendiceal stranding favoring mild/early appendicitis. No free fluid/air. New minimal scattered colonic diverticulosis without diverticulitis and nonobstructing 3 mm left renal calculus. Remaining liver, gallbladder, pancreas, spleen, adrenal glands, kidneys, ureters, bladder, and aorta are unremarkable for noncontrast exam. Osseous structures intact. Impression: 1. Prominent appendix with faint periappendiceal stranding. Rule out mild/early appendicitis. 2. Chronic findings including colonic diverticulosis and nonobstructing left renal micro-calculus.
[2024-07-10 09:44] LABS: Appearance Cloudy (Clear); Bacteria None Seen /HPF (None Seen); Bilirubin Negative (Negative); Blood Negative (Negative); Epithelial Cells None Seen /HPF (None Seen); Glucose, Urine Negative (Negative); Hyaline Casts NONE SEEN /LPF (0-2); Ketones Negative (Negative); Leukocyte Esterase Negative (Negative); Nitrite Negative (Negative); Ph 5.5 (4.6-8.0); Protein,Urine Dip Negative (Negative); RBC 0-2 /HPF (0-5); Specific Gravity 1.025 (1.005-1.030); WBC 0-2 /HPF (0-5)
[2024-07-10] MEDS ORDERED: PIPERACILLIN/TAZOBACTAM IV ONE (09:47)
[2024-07-10 09:48] LABS: ADD URINE CULTURE? NO (NO)
[2024-07-10] MEDS ORDERED: Sodium Chloride 100ML MINI-BAG PLUS 100 ML IV ONE (09:48)
[2024-07-10] MEDS: Sodium Chloride 0.9% 1000 ML 1,000 ML IV SCH ×2 (09:51→13:44)
[2024-07-10] MEDS: PIPERACILLIN/TAZOBACTAM 3.375 GM in Sodium Chloride 100ML MINI-BAG PLUS 100 ML IV ONE (09:51)
[2024-07-10 11:06] VITALS: RESP 16
[2024-07-10] MEDS: MEFOXIN 2 GM PREMIX** 2 GM/50 ML ML IV SCH (11:06)
[2024-07-10] MEDS: Lactated Ringers 1,000 ML IV SCH (11:06)
--- NOTE | 2024-07-10 12:25 | PCM.HP ---
History of Present Illness - Chief Complaint Chief Complaint: Acute appendicitis Date: 07/10/24 History of Present Illness: is a 29 year old male with a pmhx of HTN (no longer on home medications) presented to ED 07/10/24 with a one day history of RLQ abdominal pain. He describes the pain as cramping/squeezing in characteristic. 3-4/10 on numerical pain scale. No aggravating/relieving factors. Denies associated N/V or fevers. Patient does have guarding to the right side. No rebound tenderness. Upon arrival to ED, patient bradycardic. CT showing Prominent appendix with faint periappendiceal stranding. Lab findings remarkable for mild leukocytosis and elevated tbili at 2.10. Surgery consulted in ED, plan for appendectomy today. Patient started on Zosyn in ED/ - Review of Systems Constitutional: No Symptoms Eyes: No Symptoms Ears, Nose, & Throat: No Symptoms Respiratory: No Symptoms Cardiac: No Symptoms Abdominal/Gastrointestinal: Abdominal Pain Genitourinary Symptoms: No Symptoms Musculoskeletal: No Symptoms Skin: No Symptoms Neurological: No Symptoms Psychological: No Symptoms Endocrine: No Symptoms Hematologic/Lymphatic: No Symptoms Immunological/Allergic: No Symptoms Medications & Allergies Home Medications: Home Medication List No Reportable Medications [No Reported Medications] 07/10/24 [History Confirmed 07/10/24] Allergies/Adverse Reactions: Allergies Allergy/AdvReac Type Severity Reaction Status Date / Time No Known Drug Allergies Allergy Verified 07/10/24 07:40 - Past Medical History Past Medical History: Yes Neurological History: Migraines ENT History: No Pertinent History Cardiac History: Hypertension Respiratory History: No Pertinent History Endocrine Medical History: No Pertinent History Musculoskelatal History: No Pertinent History GI Medical History: No Pertinent History History: No Pertinent History Pyscho-Social History: Anxiety, Depression Male Reproductive Disorders: No Pertinent History - Past Surgical History Past Surgical History: No Neuro Surgical History: No Pertinent History Cardiac History: No Pertinent History Respiratory Surgery: No Pertinent History GI Surgical History: No Pertinent History Genitourinary Surgical Hx: No Pertinent History Musculskeletal Surgical Hx: No Pertinent History Male Surgical History: No Pertinent History Significant Family History: no pertinent family hx - Social History Smoking Status: Never smoker Exposure to second hand smoke: No Alcohol: None Drug Use: none - Social Determinants of Health Will the patient participate in the screening: Yes Do you worry about a steady place to live?: No Do you have any problems with any of the following?: No known problems In the past 12 months,have you had to go without utilities?: No Have you or anyone in your house had to go without enough: No Transportation Issues: No Has anyone in your support network made you feel unsafe?: No Does the patient want assistance with any of the above?: No - Physical Exam Vital Signs: Vital Signs - 24 hr Temp Pulse Resp BP BP Pulse Ox 07/10/24 11:10 97.7 F 45 L 16 116/65 98 07/10/24 10:56 97.7 F 45 L 16 116/65 98 07/10/24 10:30 45 L 21 107/60 97 07/10/24 10:01 43 L 22 92/53 97 07/10/24 09:56 95 07/10/24 09:30 45 L 20 121/69 97 07/10/24 09:00 55 L 17 115/67 98 07/10/24 08:30 41 L 9 L 110/70 99 07/10/24 08:19 45 L 20 115/67 94 L 07/10/24 08:06 59 L 19 125/77 95 07/10/24 08:00 49 L 16 116/72 96 07/10/24 07:36 57 L 24 125/77 96 07/10/24 07:35 98.1 F 59 L 19 125/77 95 General Appearance: no apparent distress Neurologic Exam: alert, oriented x 3, cooperative Eye Exam: PERRL/EOMI Ears, Nose, Throat Exam: normal ENT inspection Neck Exam: normal inspection Respiratory Exam: normal breath sounds, lungs clear Cardiovascular Exam: bradycardia Gastrointestinal/Abdomen Exam: soft, normal bowel sounds, tenderness (RLQ), guarding (R), No rebound Rectal Exam: deferred Back Exam: normal inspection Extremity Exam: normal inspection Skin Exam: normal color Results - Labs Lab/Micro Results: Lab Results-Last 24 Hours 07/10/24 07/10/24 07/10/24 Range/Units 07:50 07:50 09:33 WBC 10.1 H (4.23-9.07) x10^3/uL RBC 5.33 (4.63-6.08) x10^6/uL Hgb 16.0 (13.7-17.5) g/dL Hct 47.0 (40.1-51.0) % MCV 88.2 (79.0-92.2) fL MCH 30.0 (25.7-32.2) pg MCHC 34.0 (32.3-36.5) g/dL RDW 12.4 (11.6-14.4) % Plt Count 262 (163-337) x10^3/uL MPV 9.8 (9.4-12.4) fL Gran % 70.3 H (34.0-67.9) % Immature Gran % (Auto) 0.3 (0.001-0.429) % Nucleat RBC Rel Count 0.0 (0.00-0.2) % Eos # (Auto) 0.07 (0.04-0.54) x10^3/uL Immature Gran # (Auto) 0.03 (0.001-0.031) x10^3u/L Absolute Lymphs (auto) 1.91 (1.32-3.57) x10^3/uL Absolute Monos (auto) 0.94 H (0.30-0.82) x10^3/uL Absolute Nucleated RBC 0.00 (0.00-0.012) x10^3u/L Lymphocytes % 19.0 L (21.8-53.1) % Monocytes % 9.3 (5.3-12.2) % Eosinophils % 0.7 L (0.8-7.0) % Basophils % 0.4 (0.2-1.2) % Absolute Granulocytes 7.08 H (1.78-5.38) x10^3/uL Basophils # 0.04 (0.01-0.08) x10^3/uL Sodium 143 (135-145) mmol/L Potassium 3.8 (3.5-5.1) mmol/L Chloride 106 (98-107) mmol/L Carbon Dioxide 26 (22-30) mmol/L Anion Gap 14.4 (5-15) MEQ/L BUN 16 (9-20) mg/dL Creatinine 0.90 (0.66-1.25) mg/dL Estimated GFR 117.8 ML/MIN Glucose 93 (74-106) mg/dL Calcium 9.7 (8.4-10.2) mg/dL Total Bilirubin 2.10 H (0.2-1.3) mg/dL AST 26 (17-59) U/L ALT 20 (0-50) U/L Alkaline Phosphatase 56 (38-126) U/L Serum Total Protein 8.2 (6.3-8.2) g/dL Albumin 4.7 (3.5-5.0) g/dL Lipase 52 (23-300) U/L Urine Color Yellow (Yellow) Urine Appearance Cloudy A (Clear) Urine pH 5.5 (4.6-8.0) Ur Specific [place] 1.025 (1.005-1.030) Urine Protein Negative (Negative) Urine Glucose (UA) Negative (Negative) mg/dL Urine Ketones Negative (Negative) Urine Blood Negative (Negative) Urine Nitrite Negative (Negative) Urine Bilirubin Negative (Negative) Urine Urobilinogen 1.0 A (0.2) mg/dL Ur Leukocyte Esterase Negative (Negative) U Hyaline Cast (Auto) NONE SEEN (0-2) /LPF Urine Microscopic RBC 0-2 (0-5) /HPF Urine Microscopic WBC 0-2 (0-5) /HPF Ur Epithelial Cells None Seen (None Seen) /HPF Urine Bacteria None Seen (None Seen) /HPF Urine Culture Reflexed NO (NO) - Radiology Impressions Radiology Exams & Impressions: Radiology Procedures Category Date Time Status ABDOMEN AND PELVIS W/0 CONTRAS [CT] Stat Exams 07/10/24 07:53 Completed Assessment/Plan (1) Acute appendicitis Current Visit: Yes Status: Acute Assessment & Plan: -CT consistent with acute appendicitis -Surgery consulted - plan for appendectomy today -NPO -anti-emetics/supportive therapies -Zosyn Code(s): K35.80 - UNSPECIFIED ACUTE APPENDICITIS (2) Leukocytosis Current Visit: Yes Status: Acute Assessment & Plan: -secondary to appendicitis - see plan Code(s): D72.829 - ELEVATED WHITE BLOOD CELL COUNT, UNSPECIFIED (3) HTN (hypertension) Current Visit: Yes Status: Acute Assessment & Plan: -stable - not on home meds - will monitor VTE: bilateral SCD Dispo: 1-2 days Code status: full Code(s): I10 - ESSENTIAL (PRIMARY) HYPERTENSION
[2024-07-10] MEDS ORDERED: TYLENOL 325 MG PO PRN (12:29)
[2024-07-10] MEDS ORDERED: ROCURONIUM BROMIDE IV ONE ×2 (14:01→14:45)
[2024-07-10] MEDS ORDERED: Quelicin Fliptop 200 MG/10 ML ONE (14:01)
[2024-07-10] MEDS ORDERED: Versed 2 MG/2 ML Injection ONE (14:02)
[2024-07-10] MEDS ORDERED: SUBLIMAZE 100 MCG/2 ML ONE ×3 (14:02→15:31)
[2024-07-10] MEDS ORDERED: DIPRIVAN 200 MG/20 ML IV ONE (14:03)
[2024-07-10] MEDS ORDERED: Lactated Ringers 1,000 ML IV ONE (14:17)
[2024-07-10] MEDS ORDERED: Sensorcaine 0.25% 10 ML ONE (14:17)
[2024-07-10] MEDS ORDERED: BRIDION 200MG/2ML IV ONE (14:34)
[2024-07-10] MEDS ORDERED: Decadron 4 MG INJ ONE (14:54)
[2024-07-10] MEDS ORDERED: ROBINUL ONE (15:02)
[2024-07-10 16:30] VITALS: TEMP 97.8
[2024-07-10] MEDS ORDERED: NORCO 5/325 MG PO PRN (16:35)
[2024-07-10 17:59] VITALS: BP 102/51; PULSE 78; O2SAT 95
[2024-07-10] MEDS: PIPERACILLIN/TAZOBACTAM 3.375 GM in Sodium Chloride 100ML MINI-BAG PLUS 100 ML IV SCH (18:02)
--- NOTE | 2024-07-10 18:31 | PCM.DS ---
Discharge Summary Date of Admission: 07/10/24 10:41 Date of Discharge: 07/10/24 Admitting Physician: FRANKLIN LOBATO MD Primary Care Provider: AYDIN NARANJO Allergies Allergies No Known Drug Allergies Allergy (Verified 07/10/24 07:40) Hospital Summary - Hospital Course Hospital Course: is a 29 year old male with a pmhx of HTN (no longer on home medications) presented to ED 07/10/24 with a one day history of RLQ abdominal pain. He describes the pain as cramping/squeezing in characteristic. 3-4/10 on numerical pain scale. No aggravating/relieving factors. Denies associated N/V or fevers. Patient does have guarding to the right side. No rebound tenderness. Upon arrival to ED, patient bradycardic. CT showing Prominent appendix with faint periappendiceal stranding. Lab findings remarkable for mild leukocytosis and elevated tbili at 2.10. Surgery consulted in ED, Lap appendectomy performed with no complications. Patient is doing well s/p surgical procedure. Pain is controlled and vitals stable. Tolerated diet. Surgery has cleared patient for discharge. Augmentin/Morris called to pharmacy. Patient requesting discharge. Discharge Note New Diagnosis: Acute appendicitis New Medications: Augmentin/Morris Follow Up: PCP/surgery Latest Assessment & Plan 1) Acute appendicitis Current Visit: Yes Status: Acute Assessment & Plan: -CT consistent with acute appendicitis -Surgery consulted - plan for appendectomy today -NPO -anti-emetics/supportive therapies -Zosyn Code(s): K35.80 - UNSPECIFIED ACUTE APPENDICITIS (2) Leukocytosis Current Visit: Yes Status: Acute Assessment & Plan: -secondary to appendicitis - see plan Code(s): D72.829 - ELEVATED WHITE BLOOD CELL COUNT, UNSPECIFIED (3) HTN (hypertension) Current Visit: Yes Status: Acute Assessment & Plan: -stable - not on home meds - will monitor I spent 39 minutes [id number] with the patient on the day of discharge performing discharge exam, discussing hospital stay and discharge instructions with patient and caregivers, preparation of discharge records, prescriptions & referral forms and addressing any questions/concerns the patient had as documented above. - Vitals & Intake/Output Vital Signs: Vital Signs Temperature 97.8 F 07/10/24 16:15 Pulse Rate 78 07/10/24 17:45 Respiratory Rate 16 07/10/24 16:15 Blood Pressure 102/51 07/10/24 17:45 O2 Sat by Pulse Oximetry 95 07/10/24 17:45 Intake & Output: Intake & Output 07/08/24 07/09/24 07/10/24 07/11/24 11:59 11:59 11:59 11:59 Intake Total 240 Balance 240 Weight 123.1 kg - Lab Result Diagrams: 07/10/24 07:50 07/10/24 07:50 Lab Results-Last 24 Hrs: Lab Results-Last 24 Hours 07/10/24 07/10/24 07/10/24 Range/Units 07:50 07:50 09:33 WBC 10.1 H (4.23-9.07) x10^3/uL RBC 5.33 (4.63-6.08) x10^6/uL Hgb 16.0 (13.7-17.5) g/dL Hct 47.0 (40.1-51.0) % MCV 88.2 (79.0-92.2) fL MCH 30.0 (25.7-32.2) pg MCHC 34.0 (32.3-36.5) g/dL RDW 12.4 (11.6-14.4) % Plt Count 262 (163-337) x10^3/uL MPV 9.8 (9.4-12.4) fL Gran % 70.3 H (34.0-67.9) % Immature Gran % (Auto) 0.3 (0.001-0.429) % Nucleat RBC Rel Count 0.0 (0.00-0.2) % Eos # (Auto) 0.07 (0.04-0.54) x10^3/uL Immature Gran # (Auto) 0.03 (0.001-0.031) x10^3u/L Absolute Lymphs (auto) 1.91 (1.32-3.57) x10^3/uL Absolute Monos (auto) 0.94 H (0.30-0.82) x10^3/uL Absolute Nucleated RBC 0.00 (0.00-0.012) x10^3u/L Lymphocytes % 19.0 L (21.8-53.1) % Monocytes % 9.3 (5.3-12.2) % Eosinophils % 0.7 L (0.8-7.0) % Basophils % 0.4 (0.2-1.2) % Absolute Granulocytes 7.08 H (1.78-5.38) x10^3/uL Basophils # 0.04 (0.01-0.08) x10^3/uL Sodium 143 (135-145) mmol/L Potassium 3.8 (3.5-5.1) mmol/L Chloride 106 (98-107) mmol/L Carbon Dioxide 26 (22-30) mmol/L Anion Gap 14.4 (5-15) MEQ/L BUN 16 (9-20) mg/dL Creatinine 0.90 (0.66-1.25) mg/dL Estimated GFR 117.8 ML/MIN Glucose 93 (74-106) mg/dL Calcium 9.7 (8.4-10.2) mg/dL Total Bilirubin 2.10 H (0.2-1.3) mg/dL AST 26 (17-59) U/L ALT 20 (0-50) U/L Alkaline Phosphatase 56 (38-126) U/L Serum Total Protein 8.2 (6.3-8.2) g/dL Albumin 4.7 (3.5-5.0) g/dL Lipase 52 (23-300) U/L Urine Color Yellow (Yellow) Urine Appearance Cloudy A (Clear) Urine pH 5.5 (4.6-8.0) Ur Specific [place] 1.025 (1.005-1.030) Urine Protein Negative (Negative) Urine Glucose (UA) Negative (Negative) mg/dL Urine Ketones Negative (Negative) Urine Blood Negative (Negative) Urine Nitrite Negative (Negative) Urine Bilirubin Negative (Negative) Urine Urobilinogen 1.0 A (0.2) mg/dL Ur Leukocyte Esterase Negative (Negative) U Hyaline Cast (Auto) NONE SEEN (0-2) /LPF Urine Microscopic RBC 0-2 (0-5) /HPF Urine Microscopic WBC 0-2 (0-5) /HPF Ur Epithelial Cells None Seen (None Seen) /HPF Urine Bacteria None Seen (None Seen) /HPF Urine Culture Reflexed NO (NO) - Radiology Exams Ordered Rad Exams-Entire Visit: Radiology Procedures Category Date Time Status ABDOMEN AND PELVIS W/0 CONTRAS [CT] Stat Exams 07/10/24 07:53 Completed Final Diagnosis/Problem List - Final Discharge Diagnosis/Problem (1) Acute appendicitis Current Visit: Yes Status: Acute Code(s): K35.80 - UNSPECIFIED ACUTE APPENDICITIS (2) Leukocytosis Current Visit: Yes Status: Acute Code(s): D72.829 - ELEVATED WHITE BLOOD CELL COUNT, UNSPECIFIED (3) HTN (hypertension) Current Visit: Yes Status: Acute Code(s): I10 - ESSENTIAL (PRIMARY) HYPERTENSION - Discharge Disposition: Home, Self-Care Condition: Stable Prescriptions: New Amoxicillin/Potassium Clav [Amox-Clav 875-125 mg Tablet] 1 each PO BID #20 tablet Hydrocodone/Acetaminophen [Hydrocodone-Acetamin 5-325 mg] 1 tab PO Q4HPRN PRN 5 Days #20 tablet MDD 5 PRN Reason: Pain Instructions: Appendectomy Follow up with: MK ARREOLA [ACTIVE STAFF] - 07/18/24 12:10 pm ([facility]) Forms: Discharge Instructions, Work/School Release Form
--- NOTE | 2024-07-11 12:11 | CONS ---
PREOPERATIVE DIAGNOSIS: Acute appendicitis. HISTORY OF PRESENT ILLNESS: Patient has about a 30-hour history of abdominal pain localized to right lower quadrant. It is not deathly but it is substantial and his pushed him to come in. CT was positive. Exam was tender at McBurney's. PAST MEDICAL HISTORY: None. ALLERGIES: None. MEDICATIONS: None. PAST SURGICAL HISTORY: None. SOCIAL HISTORY: Negative. FAMILY HISTORY: Negative. REVIEW OF SYSTEMS: CARDIOVASCULAR: Negative. GASTROINTESTINAL: Negative. GENITOURINARY: Negative. PHYSICAL EXAMINATION: GENERAL: Alert. VITAL SIGNS: Normal. FULL BODY PHYSIQUE: Tender McBurney's. LUNGS: Clear. CARDIOVASCULAR: Regular. IMPRESSION: Acute appendicitis. PLAN: Laparoscopic appendectomy.
--- NOTE | 2024-07-13 19:42 | OP ---
SURGERY DATE/TIME: 07/10/2024 1401 - 1511 PREOPERATIVE DIAGNOSIS: Acute appendicitis. POSTOPERATIVE DIAGNOSIS: Acute appendicitis. PROCEDURE: Laparoscopic appendectomy. SURGEON: Pravin Morelos MD ANESTHESIA: General. COMPLICATIONS: None. CONDITION: Stable. INDICATIONS: Patient had symptoms and finding compatible with appendicitis. CT positive. Seen and examined. Procedure discussed. H and P dictated. DESCRIPTION OF PROCEDURE AND FINDINGS: Was moved in the room. General anesthetic. Routine prep and drape. Time-out was performed. Veress needle inserted. Opening pressure of 1. Insufflated to a pressure of 14. Two 5's laterally, 12 port at the umbilicus. A solid field. The appendix was coming down the gutter down to the end of the pelvis. It was about 4 inches long, it was acutely inflamed. The mesoappendix was taken with the 5 mm LigaSure down to the base. The base was then taken with the stapling device, single cartridge. It fired nicely. Hemostasis was good. It was placed condom bag and removed without violation. The field was dry. The hole closer device was used at the umbilicus. CO2 was exsufflated. Skin closed with 4-0 Vicryl and Steri-Strips. Patient tolerated the procedure satisfactorily. Michelle Hook was the miller first on the entire case.
== END 2024-07-10 18:50 | disposition home or self-care (01) ==
LOC: ED 07:28 → MED SURG 10:41
PROVIDERS: ADMIT Internal Medicine; ATTEND Internal Medicine
DX: K35.80 Unspecified acute appendicitis (principal); D72.829 Elevated white blood cell count, unspecified; R10.31 Right lower quadrant pain; I10 Essential (primary) hypertension
CPT/HCPCS: 36000; 36415; 74176; 80053; 81001; 83690; 85025; 96365; 96368; 96374; 96375; 99140; 99285; G0378; J0330; J0694; J1100; J1885; J2250; J2405; J2704; J3010; L0625